=== PATIENT | female | born 1975 | race Caucasian/White ===

== ENCOUNTER 2017-01-12 17:09 | Observation (INO) | payer MEDICARE ==
[2017-01-12] MEDS ORDERED: Nitrostat 0.4 MG (ED) SL ONE ×2 (17:56→18:06)
[2017-01-12] MEDS ORDERED: ANTIVERT 25 MG PO ONE (17:58)
[2017-01-12] MEDS ORDERED: Sodium Chloride 0.9% 1000 ML 1,000 ML IV SCH (18:00)
--- NOTE | 2017-01-12 18:01 | ERPHSYRPT ---
- History of Present Illness Time Seen by Provider: 01/12/17 17:50 Historian: patient Exam Limitations: clinical condition Patient Subjective Stated Complaint: PT C/O CHEST PAIN THATS GOING SINCE TUESDAY. CHEST DISCOMFORT THAT RADIATES TO THE LEFT ARM, FINGERS FEEL NUMB AND TINGLING. PT C/O DIZZINESS AND LIGHTHEADEDNESS WHICH CAUSES HER LIPS TO BE NUMB AND TINGLING. TONGUE WENT NUMB ONCE. PT C/O SOB. Triage Nursing Assessment: PT IS ALERT X 3. RESPIRATIONS EVEN AND UNLABORED. SKIN IS PINK WARM AND MOIST. Physician History: PATIENT COMPLAINS OF LEFT SUBSTERNAL CHESTS PAIN FOR 4 DAYS RADIATING INTO LEFT SHOULDER AND ARM. HAS OCCASIONAL DYSPNEA UPON EXERTION. HAS MARKED DIZZINESS UPON MOTION OF HEAD. TOOK IMITREX FOR HEADACHE EARLIER. Timing/Duration: day(s) Activities at Onset: none Quality: sharpness Location: substernal Chest Pain Radiation: arm Severity of Pain-Max: moderate Severity of Pain-Current: moderate Modifying Factors: Improves With: movement Associated Symptoms: dizziness Nitro Today/Relief: no nitro taken today (PATIENT REFUSED NITROGLYCERIN) Aspirin Treatment Today: 81 mg x 4, provided by ED Allergies/Adverse Reactions: levofloxacin [From Levaquin] Allergy (Mild, Verified 06/06/13 10:40) Quinazolinones Allergy (Mild, Verified 06/06/13 10:40) Sulfa (Sulfonamide Antibiotics) [Sulfa(Sulfonamide Antibiotics)] Allergy (Mild, Verified 06/06/13 10:40) Home Medications: Albuterol/Ipratropium Mdi [Combivent Inhaler] 14.7 gm IH BID 08/02/12 [ History] Klonopin 1 mg PO BID 08/02/12 [History] Lisinopril/ Hctz 20/12.5 1 tab PO DAILY 08/02/12 [History] Prilosec 20 mg 20 mg PO BID 08/02/12 [History] Prozac 40 mg PO DAILY 08/02/12 [History] Toprol-Xl 25MG Tablets 25 mg PO BID 08/02/12 [History] lamICTAL 100MG TABLET 200 mg PO DAILY 08/02/12 [History] zanTAC 150 MG TABLET 150 mg PO BID 08/02/12 [History] Albuterol Sulfate Mdi [Proair Hfa MDI] 8.5 gm IH Q4-6HPRN PRN 06/06/13 [ History] Divalproex Sodium 250 mg [Depakote 250 MG] 500 mg PO BID 06/06/13 [History ] Hydrocodone Bit/Acetaminophen [Vicodin 5-500 Tablet] 1 each PO Q4-6HPRN PRN 01/11 [History] Sumatriptan Succinate [Imitrex] 100 mg PO UD PRN 06/06/13 [History] Hx Tetanus, Diphtheria Vaccination/Date Given: No Hx Influenza Vaccination/Date Given: No Hx Pneumococcal Vaccination/Date Given: No Immunizations Up to Date: Yes - Review of Systems Constitutional: No Fever, No Chills Eyes: No Symptoms Ears, Nose, & Throat: No Symptoms Respiratory: No Symptoms, No Cough, No Dyspnea Cardiac: Chest Pain, No Edema, No Syncope Abdominal/Gastrointestinal: No Symptoms, No Abdominal Pain, No Nausea, No Vomiting, No Diarrhea Genitourinary Symptoms: No Symptoms, No Dysuria Musculoskeletal: No Symptoms, No Back Pain, No Neck Pain Skin: No Rash Neurological: Dizziness, No Focal Weakness, No Sensory Changes Psychological: No Symptoms Endocrine: No Symptoms All Other Systems: Reviewed and Negative - Past Medical History Pertinent Past Medical History: Yes Neurological History: Migraines ENT History: No Pertinent History Cardiac History: Hypertension, Other Respiratory History: Bronchitis Endocrine Medical History: No Pertinent History Musculoskeletal History: Degenerative Disk Disease, Other GI Medical History: GERD History: No Pertinent History Psycho-Social History: Bipolar, Depression Female Reproductive Disorders: Endometriosis Other Medical History: PVC's - Past Surgical History Past Surgical History: Yes Neuro Surgical History: No Pertinent History Cardiac: No Pertinent History Respiratory: No Pertinent History Gastrointestinal: Cholecystectomy Genitourinary: No Pertinent History Female Surgical History: Section, Tubal Ligation, Other Other Surgical History: 3 endometrial ablasions, EGD, D&C - Social History Smoking Status: Current every day smoker How long have you smoked: 28 Exposure to second hand smoke: Yes Drug Use: none Patient Lives Alone: No Significant Family History: in age 40's - Female History Hx Now: No - Nursing Vital Signs Nursing Vital Signs: Initial Vital Signs Temperature 98.4 F Temperature Source Oral Pulse Rate [] 95 Pulse Rate 78 Respiratory Rate 16 Blood Pressure [] 129/87 Pain Intensity 0 - Physical Exam General Appearance: no apparent distress, alert Eye Exam: PERRL/EOMI, eyes nml inspection Ears, Nose, Throat Exam: normal ENT inspection, moist mucous membranes Neck Exam: normal inspection, non-tender, supple, full range of motion Respiratory Exam: normal breath sounds, chest tenderness (LEFT ANTERIOR CHEST WALL 2ND TO 4TH RIBS ), lungs clear, No respiratory distress Cardiovascular Exam: regular rate/rhythm, normal heart sounds Gastrointestinal/Abdomen Exam: soft, normal bowel sounds, No tenderness, No mass Back Exam: normal inspection, No CVA tenderness, No vertebral tenderness Extremity Exam: normal inspection, normal range of motion Neurologic Exam: alert, oriented x 3, cooperative, normal mood/affect, sensation nml, No motor deficits Skin Exam: normal color, warm, dry SpO2 Interpretation: normal SpO2: 97 Oxygen Delivery: Room Air - Course EKG Interpreted by Me: RATE, Sinus Rhythm, NORMAL AXIS - Radiology Exams Chest X-ray Interpretation: Interpreted by me, Negative, No Infiltrates Ordered Tests: Active Orders 24 hr Category Date Time Status Up With Assistance ROUTINE Activity 01/12/17 19:06 Ordered Admission/Status Order ROUTINE Care 01/12/17 19:05 Ordered Call Admit Doctor for Orders ROUTINE Care 01/12/17 19:05 Ordered Machine Heel Seat Fitter STAT Care 01/12/17 17:56 Active Code Status Order ROUTINE Care 01/12/17 19:05 Ordered EKG-ER Only STAT Care 01/12/17 17:56 Active IV Care Q6H Care 01/12/17 19:05 Ordered IV Insertion STAT Care 01/12/17 17:56 Active Implement Chest Pain Pathway ROUTINE Care 01/12/17 19:05 Ordered Oxygen-ED Only NASAL CANNULA 2 lpm Care 01/12/17 17:56 Active Pulse Oximetry (ED) STAT Care 01/12/17 17:56 Active Artis Pacheco, Apply ROUTINE Care 01/12/17 19:05 Ordered Telemetry ROUTINE Care 01/12/17 19:05 Ordered Vital Signs Q4H Care 01/12/17 19:05 Ordered Weight,Daily 0600 Care 01/12/17 19:05 Ordered Regular Diet Diet 01/12/17 Breakfast Ordered CHEST 1 VIEW (PORTABLE) Stat Exams 01/12/17 18:12 Taken CBC W DIFF Stat Lab 01/12/17 17:18 Completed CMP Stat Lab 01/12/17 17:18 Completed D-DIMER QUANTITATION Stat Lab 01/12/17 17:18 Completed LIPID PROFILE AM.LAB Lab 01/13/17 04:00 Ordered PROTIME WITH INR Stat Lab 01/12/17 17:18 Completed TROPONIN Q3H Lab 01/12/17 17:18 Completed TROPONIN Q3H Lab 01/12/17 21:00 Ordered TROPONIN Q3H Lab 01/13/17 00:00 Ordered TROPONIN Q3H Lab 01/13/17 03:00 Ordered TROPONIN Q3H Lab 01/13/17 06:00 Ordered EKG Q8HX2,QAMX3,PRN RT 01/12/17 19:05 Ordered Pulse Oximetry Q4H RT 01/12/17 19:05 Ordered Transfer Order Routine Transfer 01/12/17 19:02 Ordered Medication Summary Generic Name Dose Route Start Last Admin Trade Name Freq PRN Reason Stop Dose Admin Sodium Chloride 1,000 mls @ 100 mls/hr 01/12/17 18:00 01/12/17 18:11 Sodium Chloride 0.9% 1000 Ml IV 02/11/17 17:59 100 mls/hr .Q10H CHAVA Administration Discontinued Medications Generic Name Dose Route Start Last Admin Trade Name Freq PRN Reason Stop Dose Admin Meclizine HCl 25 mg 01/12/17 17:58 01/12/17 18:09 Antivert 25 Mg PO 01/12/17 17:59 25 mg STAT ONE Administration Meclizine HCl Confirm 01/12/17 18:07 Antivert 25 Mg Administered 01/12/17 18:08 Dose 25 mg .ROUTE .STK-MED ONE Nitroglycerin 0.4 mg 01/12/17 17:56 01/12/17 18:15 Nitrostat 0.4 Mg (Ed) SL 01/12/17 17:57 Not Given STAT ONE Nitroglycerin Confirm 01/12/17 18:06 Nitrostat 0.4 Mg (Ed) Administered 01/12/17 18:07 Dose 0.4 mg SL .STK-MED ONE Nitroglycerin 1 gm 01/12/17 18:49 01/12/17 18:53 Nitro-Bid 2% Ud Packets TOP 01/12/17 18:50 1 gm STAT ONE Administration Nitroglycerin Confirm 01/12/17 18:51 Nitro-Bid 2% Ud Packets Administered 01/12/17 18:52 Dose 1 gm .ROUTE .STK-MED ONE Lab/Rad Data: Laboratory Result Diagrams 01/12/17 17:18 01/12/17 17:18 Laboratory Results 01/12/17 01/12/17 01/12/17 Range/Units 17:18 17:18 17:18 WBC (4.0-10.5) K/mm3 RBC (4.1-5.4) M/mm3 Hgb (12.0-16.0) gm/dl Hct (35-47) % MCV (78-100) fl MCH (26-32) pg MCHC (32-36) g/dl RDW (11.5-14.0) % Plt Count (150-450) K/mm3 MPV (6-9.5) fl Gran % (36.0-66.0) % Lymphocytes % (24.0-44.0) % Monocytes % (0.0-12.0) % Eosinophils % (0.00-5.0) % Basophils % (0.0-0.4) % Basophils # (0-0.4) INR 1.11 (0.8-3.0) D-Dimer 337.18 (0.00-500.00) ng/mL Sodium 141 (136-145) mEq/L Potassium 3.7 (3.5-5.1) mEq/L Chloride 103 (98-107) mEq/L Carbon Dioxide 30.2 (21-32) mEq/L Anion Gap 11.1 (5-15) MEQ/L BUN 15 (9-20) mg/dL Creatinine 0.93 (0.55-1.30) mg/dl Estimated GFR > 60 ML/MIN Glucose 107 (70-110) MG/DL Calcium 9.6 (8.5-10.1) mg/dL Total Bilirubin 0.40 (0.2-1.0) mg/dL AST 24 (15-37) U/L ALT 99 H (12-78) U/L Alkaline Phosphatase 82 (46-116) U/L Troponin I < 0.017 (0.000-0.056) ng/ml Serum Total Protein 8.3 H (6.4-8.2) gm/dL Albumin 4.1 (3.4-5.0) g/dL 01/12/17 Range/Units 17:18 WBC 10.9 H (4.0-10.5) K/mm3 RBC 5.18 (4.1-5.4) M/mm3 Hgb 16.5 H (12.0-16.0) gm/dl Hct 49.3 H (35-47) % MCV 95.2 (78-100) fl MCH 31.8 (26-32) pg MCHC 33.5 (32-36) g/dl RDW 14.1 H (11.5-14.0) % Plt Count 259 (150-450) K/mm3 MPV 11.4 H (6-9.5) fl Gran % 64.2 (36.0-66.0) % Lymphocytes % 26.9 (24.0-44.0) % Monocytes % 7.0 (0.0-12.0) % Eosinophils % 1.4 (0.00-5.0) % Basophils % 0.5 (0.0-0.4) % Basophils # 0.05 (0-0.4) INR (0.8-3.0) D-Dimer (0.00-500.00) ng/mL Sodium (136-145) mEq/L Potassium (3.5-5.1) mEq/L Chloride (98-107) mEq/L Carbon Dioxide (21-32) mEq/L Anion Gap (5-15) MEQ/L BUN (9-20) mg/dL Creatinine (0.55-1.30) mg/dl Estimated GFR ML/MIN Glucose (70-110) MG/DL Calcium (8.5-10.1) mg/dL Total Bilirubin (0.2-1.0) mg/dL AST (15-37) U/L ALT (12-78) U/L Alkaline Phosphatase (46-116) U/L Troponin I (0.000-0.056) ng/ml Serum Total Protein (6.4-8.2) gm/dL Albumin (3.4-5.0) g/dL - Progress Progress: improved Progress Note: 01/12/17 18:58 PATIENT GIVEN BABY ASA X 4, ANTIVERT 25MG ORALLY, REFUSED NITROGLYCERIN SL, NITROPASTE 1 " APPLIED TO CHEST PAIN Discussed with DrLatisha: Kiah (DISCUSSED WITH DR KITA ADKINS AT 1830 FOR EVALUATION ) Will see patient in: hospital (observation) - Departure Time of Disposition: 19:05 Departure Disposition: Observation Clinical Impression: ACUTE CHEST PAIN, ACUTE LABYRINTHITIS Condition: Stable Critical Care Time: No Referrals: ROBERT ADKINS [Primary Care Provider] -
[2017-01-12 18:04] LABS: BASOPHIL % 0.5 % (0.0-0.4); Eosinophil % 1.4 % (0.00-5.0); Granulocytes % 64.2 % (36.0-66.0); Lymphocytes % 26.9 % (24.0-44.0); Mean Cell Volume 95.2 fl (78-100); Mean Platelet Volume 11.4 fl (6-9.5); Platelet Count 259 K/mm3 (150-450); Red Blood Count 5.18 M/mm3 (4.1-5.4); Red Cell Distribution Width 14.1 % (11.5-14.0); White Blood Count 10.9 K/mm3 (4.0-10.5)
[2017-01-12 18:05] LABS: Mean Corpuscular Hemoglobin 31.8 pg (26-32)
[2017-01-12 18:06] LABS: INR 1.11 (0.8-3.0); PROTIME 12.6 SECONDS (9.95-12.35)
[2017-01-12] MEDS ORDERED: Sodium Chloride 0.9% 1000 ML 1,000 ML ONE (18:07)
[2017-01-12] MEDS ORDERED: ANTIVERT 25 MG ONE (18:07)
[2017-01-12 18:14] LABS: ALBUMIN 4.1 g/dL (3.4-5.0); ALKALINE PHOSPHATASE 82 U/L (46-116); ANION GAP 11.1 MEQ/L (5-15); BLOOD UREA NITROGEN 15 mg/dL (9-20); CHLORIDE 103 mEq/L (98-107); Carbon Dioxide 30.2 mEq/L (21-32); Glucose 107 MG/DL (70-110); Potassium 3.7 mEq/L (3.5-5.1); SGOT/AST 24 U/L (15-37); SGPT/ALT 99 U/L (12-78); SODIUM 141 mEq/L (136-145); Total Protein 8.3 gm/dL (6.4-8.2)
[2017-01-12] MEDS ORDERED: NITRO-BID 2% UD PACKETS TOP ONE (18:49)
[2017-01-12] MEDS ORDERED: NITRO-BID 2% UD PACKETS ONE (18:51)
[2017-01-12] MEDS ORDERED: Zofran 4 MG/2 ML VIAL IV PRN (19:05)
[2017-01-12] MEDS ORDERED: TYLENOL 325 MG PO PRN (19:05)
[2017-01-12] MEDS ORDERED: Senokot-S Tablet PO PRN (19:05)
[2017-01-12] MEDS ORDERED: MILK OF MAGNESIA 30 ML PO PRN (19:05)
[2017-01-12] MEDS ORDERED: MAALOX ES 30 ML UNIT DOSE PO PRN (19:05)
[2017-01-12] MEDS ORDERED: ANTIVERT 25 MG PO PRN (19:08)
[2017-01-12] MEDS ORDERED: Nitrostat 0.4 MG Tablet SL PRN (19:09)
[2017-01-12] MEDS ORDERED: Sodium Chloride 0.9% 500 ML 500 ML IV SCH (19:15)
[2017-01-12] MEDS ORDERED: PHENERGAN 25 MG PO PRN (22:04)
[2017-01-12] MEDS ORDERED: PROVENTIL COMMON CANISTER IH PRN (22:12)
[2017-01-12] MEDS: Advair Hfa 115/21 Common canister IH SCH (22:15)
[2017-01-12] MEDS: Toprol-Xl 25MG Tablets PO SCH (22:26)
[2017-01-12] MEDS: Pepcid 20 MG PO SCH (22:26)
[2017-01-12] MEDS: Klonopin 0.5 MG PO SCH (22:26)
[2017-01-12] MEDS: Protonix 40MG Tablet PO SCH (22:26)
[2017-01-12] MEDS: NITRO-BID 2% UD PACKETS TOP SCH (22:27)
[2017-01-13] MEDS: NITRO-BID 2% UD PACKETS TOP SCH (06:02)
[2017-01-13] MEDS: Advair Hfa 115/21 Common canister IH SCH (06:47)
[2017-01-13 06:57] VITALS: O2SAT 94
[2017-01-13 07:31] VITALS: BP 103/55; PULSE 80
--- NOTE | 2017-01-13 08:32 | XRAY ---
Indication: Chest pain, short of breath, and dizziness. Comparison: June 28, 2016. Single AP chest again demonstrates normal heart, lungs, and bony thorax.
--- NOTE | 2017-01-13 08:32 | PCM.HP ---
History of Present Illness - Chief Complaint Chief Complaint: Shortness of Breath Date: 01/17/17 History of Present Illness: is a 41 year old female. who has history of symptomatic PVC but was feeling different yesterday with some sharp pains and tightness in the chest and radiation to the left arm. she had no nausea, vomiting or diaphoresis and no shortness of breath. Nitro may have helped some but gave her a headache. She states the pains are better this am. She feels more frequent palpitations now for the last several days. - Review of Systems Constitutional: No Fever, No Chills Eyes: No Symptoms Ears, Nose, & Throat: No Symptoms Respiratory: No Cough, No Short Of Breath Cardiac: Chest Pain, Palpitations, No Edema, No Syncope Abdominal/Gastrointestinal: No Abdominal Pain, No Nausea, No Vomiting, No Diarrhea Genitourinary Symptoms: No Dysuria Musculoskeletal: No Back Pain, No Neck Pain Skin: No Rash Neurological: No Dizziness, No Focal Weakness, No Sensory Changes Psychological: No Symptoms Endocrine: No Symptoms Hematologic/Lymphatic: No Symptoms Immunological/Allergic: No Symptoms Medications & Allergies Home Medications: Home Medication List Albuterol Sulfate Mdi [Proair Hfa MDI] 8.5 gm IH Q4-6HPRN PRN 06/06/13 [ History Confirmed 01/12/17] Clonazepam [Klonopin] 1 mg PO TID 01/12/17 [History Confirmed 01/12/17] Fluticasone/Salmeterol [Advair 250-50 Diskus] 1 each IH BID 01/12/17 [History Confirmed 01/12/17] Hydrochlorothiazide 12.5 mg PO DAILY 01/12/17 [History Confirmed 01/12/17] Lamotrigine 100 mg [lamICTAL 100MG TABLET] 200 mg PO DAILY 01/12/17 [ History Confirmed 01/12/17] Metoprolol Succinate [Toprol Xl] 25 mg PO BID 01/12/17 [History Confirmed ] Montelukast Sodium [Singulair] 10 mg PO DAILY 01/12/17 [History Confirmed ] Omeprazole 20 MG [Prilosec 20 mg] 20 mg PO BID 01/12/17 [History Confirmed 01/12] Potassium Chloride 10 Meq Tab* [Klor Con 10 MEQ] 20 meq PO DAILY 01/12/17 [ History Confirmed 01/12/17] Promethazine HCl 25 mg [Phenergan 25 mg] 25 mg PO Q6HPRN PRN 01/12/17 [ History Confirmed 01/12/17] Ranitidine HCl [Zantac] 150 mg PO BID 01/12/17 [History Confirmed 01/12/17] Sumatriptan Succinate [Imitrex] 100 mg PO DAILY PRN PRN 01/12/17 [History Confirmed 01/12/17] Venlafaxine HCl ER 75 mg [Effexor XR 75 MG] 75 mg PO DAILY 01/12/17 [ History Confirmed 01/12/17] Meclizine HCl 25 mg [Antivert 25 mg] 25 mg PO Q8H PRN PRN #40 tablet 01/13 [Rx] Allergies/Adverse Reactions: Allergies Allergy/AdvReac Type Severity Reaction Status Date / Time levofloxacin [From Levaquin] Allergy Mild Verified 06/06/13 10:40 Quinazolinones Allergy Mild Verified 06/06/13 10:40 Sulfa (Sulfonamide Allergy Mild Verified 06/06/13 10:40 Antibiotics) [Sulfa(Sulfonamide Antibiotics)] - Past Medical History Past Medical History: Yes Neurological History: Migraines ENT History: No Pertinent History Cardiac History: Arrhythmia, Hypertension, Other Respiratory History: Bronchitis, Pneumonia Endocrine Medical History: No Pertinent History Musculoskelatal History: Degenerative Disk Disease, Other GI Medical History: GERD History: No Pertinent History Pyscho-Social History: Bipolar, Depression Reproductive Disorders: Endometriosis Comment: PVC's - Female History Are you now?: No - Past Surgical History Past Surgical History: Yes Neuro Surgical History: No Pertinent History Cardiac History: No Pertinent History Respiratory Surgery: No Pertinent History GI Surgical History: Cholecystectomy Genitourinary Surgical Hx: No Pertinent History Female Surgical History: Section, Tubal Ligation, Other Other Surgical History: 1 endometrial ablasions, EGD, D&C - Social History Smoking Status: Current every day smoker How long have you smoked: 28 Exposure to second hand smoke: Yes Alcohol: None Drug Use: none Significant Family History: in age 40's - Physical Exam Vital Signs: Vital Signs - 24 hr Temp Pulse Pulse Resp BP Pulse Ox 01/13/17 07:30 98.3 F 80 13 103/55 94 L 01/13/17 06:52 67 14 94 L 01/13/17 06:00 96 01/13/17 04:00 98.3 F 81 16 113/59 95 01/13/17 02:31 93 L 01/12/17 23:57 98.4 F 98 H 16 117/56 93 L 01/12/17 22:17 81 16 96 01/12/17 20:18 98.3 F 78 16 116/66 2 L 01/12/17 19:20 74 14 119/80 99 01/12/17 19:11 97 01/12/17 18:49 78 16 129/87 100 01/12/17 18:16 84 16 124/74 97 01/12/17 17:56 97 01/12/17 17:16 95 H 01/12/17 17:10 98.4 F 98 H 22 139/90 97 Oxygen-Last 24 hours O2 Percentage 2 Liters = 28% O2 Percentage 2 Liters = 28% O2 Percentage 2 Liters = 28% General Appearance: no apparent distress, alert Neurologic Exam: alert, oriented x 3, cooperative, normal mood/affect, nml cerebellar function, nml station & gait, sensation nml, No motor deficits Eye Exam: PERRL/EOMI, eyes nml inspection Ears, Nose, Throat Exam: normal ENT inspection, TMs normal, pharynx normal, moist mucous membranes Neck Exam: normal inspection, non-tender, supple, full range of motion Respiratory Exam: normal breath sounds, lungs clear, No respiratory distress Cardiovascular Exam: regular rate/rhythm, normal heart sounds, normal peripheral pulses Gastrointestinal/Abdomen Exam: soft, normal bowel sounds, No tenderness, No mass Back Exam: normal inspection, normal range of motion, No CVA tenderness, No vertebral tenderness Extremity Exam: normal inspection, normal range of motion, pelvis stable Skin Exam: normal color, warm, dry, No rash Lymphatic Exam: No adenopathy Results - Labs Lab/Micro Results: Lab Results-Last 24 Hours 01/12/17 01/12/17 01/13/17 Range/Units 21:00 21:15 00:15 Troponin I < 0.017 < 0.017 (0.000-0.056) ng/ml Triglycerides 147 (30-200) mg/dL Cholesterol 241 H (100-200) mg/dL LDL Cholesterol 181 H (5-99) mg/dL HDL Cholesterol 37 (35-60) mg/dL Heart Disease Risk Ratio 6.5 01/13/17 01/13/17 Range/Units 03:15 06:00 Troponin I < 0.017 < 0.017 (0.000-0.056) ng/ml Triglycerides (30-200) mg/dL Cholesterol (100-200) mg/dL LDL Cholesterol (5-99) mg/dL HDL Cholesterol (35-60) mg/dL Heart Disease Risk Ratio - Other Procedures and Tests Respiratory Therapy 01/12/17 22:11 Respiratory MDI BID 01/12/17 22:12 Respiratory MDI PRN 01/14/17 05:00 EKG DAILY 01/15/17 05:00 EKG DAILY 01/16/17 05:00 EKG DAILY Assessment/Plan (1) Chest pain Status: Acute Assessment & Plan: serial troponins negative chest pain improved and no significant arrhythmias on telemetry will get Holter monitor and have follow up with her cvor nurse Dr. Morales Code(s): R07.9 - CHEST PAIN, UNSPECIFIED (2) Palpitations Status: Acute Code(s): R00.2 - PALPITATIONS (3) Hypertension Status: Acute Code(s): I10 - ESSENTIAL (PRIMARY) HYPERTENSION (4) Anxiety Status: Acute Code(s): F41.9 - ANXIETY DISORDER, UNSPECIFIED
--- NOTE | 2017-01-13 08:34 | PCM.DCORD ---
- Discharge Discharge Date: 01/13/17 Disposition: Home, Self-Care Condition: Stable Prescriptions: New Meclizine HCl 25 mg [Antivert 25 mg] 25 mg PO Q8H PRN PRN #40 tablet PRN Reason: Dizziness Continue Albuterol Sulfate Mdi [Proair Hfa MDI] 8.5 gm IH Q4-6HPRN PRN PRN Reason: Shortness Of Breath/Wheezing Clonazepam [Klonopin] 1 mg PO TID Venlafaxine HCl ER 75 mg [Effexor XR 75 MG] 75 mg PO DAILY Hydrochlorothiazide 12.5 mg PO DAILY Promethazine HCl 25 mg [Phenergan 25 mg] 25 mg PO Q6HPRN PRN PRN Reason: Nausea Montelukast Sodium [Singulair] 10 mg PO DAILY Potassium Chloride 10 Meq Tab* [Klor Con 10 MEQ] 20 meq PO DAILY Ranitidine HCl [Zantac] 150 mg PO BID Metoprolol Succinate [Toprol Xl] 25 mg PO BID Sumatriptan Succinate [Imitrex] 100 mg PO DAILY PRN PRN PRN Reason: Headache Omeprazole 20 MG [Prilosec 20 mg] 20 mg PO BID Lamotrigine 100 mg [lamICTAL 100MG TABLET] 200 mg PO DAILY Fluticasone/Salmeterol [Advair 250-50 Diskus] 1 each IH BID Additional Instructions: please set up with home 24 hour Holter monitor for palpitations and presyncope Follow up with: ROBERT ADKINS [Primary Care Provider] - KALPANA ALLEN [ACTIVE STAFF] - 1 Week
[2017-01-13] MEDS ORDERED: Klor Con 10 MEQ PO SCH (10:00)
[2017-01-13] MEDS ORDERED: hydroDIURIL 25 MG PO SCH (10:00)
[2017-01-13] MEDS ORDERED: Effexor XR 75 MG PO SCH (10:00)
[2017-01-13] MEDS ORDERED: NON-FORMULARY ITEM (Hydrochlorothiazide [Hydrochlorothiazide] 12.5 MG) PO SCH (10:00)
[2017-01-13] MEDS ORDERED: Singulair 10 MG PO SCH (10:00)
[2017-01-13] MEDS ORDERED: Ecotrin 325 MG PO SCH (10:00)
[2017-01-13] MEDS ORDERED: Toprol-Xl 25MG Tablets PO SCH (10:00)
[2017-01-13] MEDS ORDERED: lamICTAL 100MG TABLET PO SCH (10:00)
[2017-01-13] MEDS ORDERED: PNEUMOVAX 23 IM ONE (10:00)
[2017-01-13] MEDS: Protonix 40MG Tablet PO SCH (10:06)
[2017-01-13] MEDS: Klonopin 0.5 MG PO SCH (10:06)
[2017-01-13] MEDS: Pepcid 20 MG PO SCH (10:06)
[2017-01-13] MEDS: Toprol-Xl 25MG Tablets PO SCH (10:06)
== END 2017-01-13 10:25 | disposition home or self-care (01) ==
LOC: ED 17:09 → MED SURG 19:40
PROVIDERS: ADMIT Family Medicine; ATTEND Family Medicine
DX: R07.9 Chest pain, unspecified (principal); R00.2 Palpitations; I10 Essential (primary) hypertension; F41.9 Anxiety disorder, unspecified; K21.9 Gastro-esophageal reflux disease without esophagitis; F31.9 Bipolar disorder, unspecified; N80.9 Endometriosis, unspecified; I49.3 Ventricular premature depolarization; Z72.0 Tobacco use; Z79.899 Other long term (current) drug therapy; Z23 Encounter for immunization
CPT/HCPCS: 36000; 36415; 71010; 80053; 80061; 83721; 84484; 85025; 85379; 85610; 90732; 93005; 93041; 93268; 94640; 94760; 96360; 99285; G0378; A9270-GY

== ENCOUNTER 2018-07-19 13:43 | Observation (INO) | payer MEDICARE ==
[2018-07-19] MEDS ORDERED: BABY ASPIRIN 81 MG CHEW PO ONE (14:01)
[2018-07-19] MEDS ORDERED: PROVENTIL 2.5 MG/3 ML NEB IH ONE ×2 (14:03→14:14)
[2018-07-19] MEDS ORDERED: solu-MEDROL 125 MG IV ONE (14:03)
--- NOTE | 2018-07-19 14:09 | ERPHSYRPT ---
- History of Present Illness Time Seen by Provider: 07/19/18 14:04 Historian: patient Exam Limitations: no limitations Patient Subjective Stated Complaint: seen at [facility] on tuesday for sinus and ear infection. started with CP x 2 days and PVCs which she has had in the past.. non productive cough.. no fever Triage Nursing Assessment: alert and in no distress. states pain in chest x 2 days. sen at [facility] on tuesday for sinus infection and ear infection. pain to her chest increases when laying down states can feel the PVCs. non prodictive cough Physician History: 42-year-old white female with history of migraines, high blood pressure, bronchitis, degenerative disc disease, GERD, bipolar depression, PVCs Patient states that she's had a cough, sinus infection ear infection for 2 days she states she was seen at [facility] placed on antibiotic she states that. She has been having PVCs for 2 days she states initially told the nurse she had chest pain for the last couple days she tells me that she had chest pain and radiating around her left chest to her back since 10 minutes prior to arrival. She denies shortness of breath she has no nausea no vomiting. Past medical history includes migraines, high blood pressure, bronchitis, degenerative disc disease, GERD, bipolar depression, endometriosis, PVCs she tolerated. Past surgical history includes cholecystectomy, , tubal ligation, endometrial ablation Social history positive for tobacco positive for marijuana use 2 days ago Timing/Duration: other (PVCs for 2 days, tells the nurse chest pain for 2 days, tells me chest pain 10 minutes prior to arrival) Activities at Onset: none Quality: pressure, sharpness Location: other (anterior chest radiating aroundleft side) Severity of Pain-Max: moderate Severity of Pain-Current: mild Modifying Factors: Improves With: nothing Associated Symptoms: palpitations, cough, No nausea, No vomiting, No heartburn, No abdominal pain (Controlling nausea or a), No shortness of breath, No hurts to breathe, No diaphoresis, No chills, No fever, No fatigue, No weakness, No swelling/lump in chest, No syncope, No rash, No headache, No dizziness, No edema , No back pain Prior Chest Pain/Cardiac Workup: non-cardiac Nitro Today/Relief: no nitro taken today Aspirin Treatment Today: 81 mg x 4, provided by ED Allergies/Adverse Reactions: levofloxacin [From Levaquin] Allergy (Mild, Verified 07/19/18 14:03) Quinazolinones Allergy (Mild, Verified 07/19/18 14:03) Sulfa (Sulfonamide Antibiotics) [Sulfa(Sulfonamide Antibiotics)] Allergy (Mild, Verified 07/19/18 14:03) Home Medications: Albuterol Sulfate Mdi [Proair Hfa MDI] 8.5 gm IH Q4-6HPRN PRN 06/06/13 [ History] Fluticasone/Salmeterol [Advair 250-50 Diskus] 1 each IH BID 01/12/17 [History] Lamotrigine 100 mg [lamICTAL 100MG TABLET] 200 mg PO DAILY 01/12/17 [ History] Metoprolol Succinate [Toprol Xl] 25 mg PO BID 01/12/17 [History] Montelukast Sodium [Singulair] 10 mg PO DAILY 01/12/17 [History] Omeprazole 20 MG [Prilosec 20 mg] 20 mg PO BID 01/12/17 [History] Potassium Chloride 10 Meq Tab* [Klor Con 10 MEQ] 20 meq PO DAILY 01/12/17 [ History] Promethazine HCl 25 mg [Phenergan 25 mg] 25 mg PO Q6HPRN PRN 01/12/17 [ History] Ranitidine HCl [Zantac] 150 mg PO BID 01/12/17 [History] Sumatriptan Succinate [Imitrex] 100 mg PO DAILY PRN PRN 01/12/17 [History] Venlafaxine HCl ER 75 mg [Effexor XR 75 MG] 75 mg PO DAILY 01/12/17 [ History] clonazePAM [Klonopin] 1 mg PO TID 01/12/17 [History] hydroCHLOROthiazide [Hydrochlorothiazide] 12.5 mg PO DAILY 01/12/17 [History] Hx Tetanus, Diphtheria Vaccination/Date Given: No Hx Influenza Vaccination/Date Given: No Hx Pneumococcal Vaccination/Date Given: No - Review of Systems Constitutional: No Fever, No Chills Eyes: No Symptoms Ears, Nose, & Throat: No Symptoms, Nose Congestion Respiratory: Cough, No Dyspnea Cardiac: Chest Pain, Palpitations, No Edema, No Syncope, No Orthopnea, No PND Abdominal/Gastrointestinal: No Abdominal Pain, No Nausea, No Vomiting, No Diarrhea Genitourinary Symptoms: No Dysuria Musculoskeletal: No Back Pain, No Neck Pain Skin: No Rash Neurological: No Dizziness, No Focal Weakness, No Sensory Changes Psychological: No Symptoms Endocrine: No Symptoms All Other Systems: Reviewed and Negative - Past Medical History Pertinent Past Medical History: Yes Neurological History: Migraines ENT History: No Pertinent History Cardiac History: Arrhythmia, Hypertension, Other Respiratory History: Bronchitis, Pneumonia Endocrine Medical History: No Pertinent History Musculoskeletal History: Degenerative Disk Disease, Other GI Medical History: GERD History: No Pertinent History Psycho-Social History: Bipolar, Depression Female Reproductive Disorders: Endometriosis Other Medical History: PVC's - Past Surgical History Past Surgical History: Yes Neuro Surgical History: No Pertinent History Cardiac: No Pertinent History Respiratory: No Pertinent History Gastrointestinal: Cholecystectomy Genitourinary: No Pertinent History Female Surgical History: Section, Tubal Ligation, Other Other Surgical History: 1 endometrial ablasions, EGD, D&C - Social History Smoking Status: Current every day smoker How long have you smoked: 28 Exposure to second hand smoke: No Drug Use: marijuana Patient Lives Alone: No Significant Family History: in age 40's - Female History Hx Now: No - Nursing Vital Signs Nursing Vital Signs: Initial Vital Signs Temperature 98 F 07/19/18 13:55 Pulse Rate 82 07/19/18 13:55 Respiratory Rate 18 07/19/18 13:55 Blood Pressure 155/108 07/19/18 13:55 O2 Sat by Pulse Oximetry 97 07/19/18 13:55 Pain Scale Pain Intensity 4 - Physical Exam General Appearance: no apparent distress, alert Eye Exam: PERRL/EOMI, eyes nml inspection Ears, Nose, Throat Exam: normal ENT inspection, moist mucous membranes Neck Exam: normal inspection, non-tender, supple, full range of motion Respiratory Exam: airway intact, wheezing, No chest tenderness, No lungs clear, No respiratory distress, No diminished breath sounds, No accessory muscle use, No prolonged expirations, No crackles/rales, No rhonchi, No pleural rub Cardiovascular Exam: regular rate/rhythm, normal heart sounds, normal peripheral pulses, capillary refill <2 sec Gastrointestinal/Abdomen Exam: soft, No tenderness, No mass Back Exam: normal inspection, No CVA tenderness, No vertebral tenderness Extremity Exam: normal inspection, normal range of motion Neurologic Exam: alert, oriented x 3, cooperative, sleeve maker II-XII nml as tested, normal mood/affect, sensation nml, No motor deficits Skin Exam: normal color, warm, dry SpO2 Interpretation: normal (97%she stated) SpO2: 97 Oxygen Delivery: Room Air - Course Nursing assessment & vital signs reviewed: Yes EKG Interpreted by Me: RATE (81 bpm), Sinus Rhythm, NORMAL AXIS, Other (EKG: Sinus rhythm, with PVC's, moderate a of artifact, normal axis, no acute ST or T wave changescompared to January 13, 2017) - Radiology Exams Chest X-ray Interpretation: Discussed w/ radiologist (cxr: normal heart, lungs and bony thorax) Ordered Tests: Active Orders 24 hr Category Date Time Status Petroleum Analyst STAT Care 07/19/18 14:02 Active EKG-ER Only STAT Care 07/19/18 14:01 Active IV Insertion STAT Care 07/19/18 14:11 Active Oxygen-ED Only NON-REBREATHER 100% Care 07/19/18 14:35 Active Pulse Oximetry (ED) STAT Care 07/19/18 14:01 Active CHEST 1 VIEW (PORTABLE) Stat Exams 07/19/18 14:02 Completed CBC W DIFF Stat Lab 07/19/18 14:01 Completed CMP Stat Lab 07/19/18 14:25 Completed D-DIMER QUANTITATION Stat Lab 07/19/18 14:25 Completed Manual Differential NC Stat Lab 07/19/18 14:01 Completed PROTIME WITH INR Stat Lab 07/19/18 14:25 Completed PTT Stat Lab 07/19/18 14:25 Completed TROPONIN Q3H Lab 07/19/18 14:25 Completed TROPONIN Q3H Lab 07/19/18 17:15 Ordered TROPONIN Q3H Lab 07/19/18 20:15 Ordered TROPONIN Q3H Lab 07/19/18 23:15 Ordered TROPONIN Q3H Lab 07/20/18 02:15 Ordered VENOUS BLOOD GAS Stat Lab 07/19/18 14:28 Completed VENOUS BLOOD GAS Stat Lab 07/19/18 16:30 Completed Peak Expiratory Flow Rate ONCE RT 07/19/18 14:24 Active Respiratory Nebulizer STAT RT 07/19/18 14:04 Completed Respiratory Therapy Assessment DAILY RT 07/19/18 14:24 Active Transfer Order Routine Transfer 07/19/18 Ordered Medication Summary Generic Name Dose Route Start Last Admin Trade Name Lita PRN Reason Stop Dose Admin Ceftriaxone Sodium/Dextrose 1 g in 50 mls @ 100 mls/hr 07/19/18 16:23 16:34 Rocephin 1 Gm-D5w 50 Ml Bag IV 07/19/18 16:52 100 ml/hr STAT STA 100 mls/hr Administration Discontinued Medications Generic Name Dose Route Start Last Admin Trade Name Lita PRN Reason Stop Dose Admin Albuterol Sulfate 2.5 mg 07/19/18 14:03 07/19/18 14:18 Proventil 2.5 Mg/3 Ml Neb IH 07/19/18 14:04 2.5 mg STAT ONE Administration Albuterol Sulfate Confirm 07/19/18 14:14 Proventil 2.5 Mg/3 Ml Neb Administered 07/19/18 14:15 Dose 2.5 mg IH .STK-MED ONE Aspirin 324 mg 07/19/18 14:01 07/19/18 14:27 Baby Aspirin 81 Mg Chew PO 07/19/18 14:02 324 mg STAT ONE Administration Aspirin Confirm 07/19/18 14:25 Baby Aspirin 81 Mg Chew Administered 07/19/18 14:26 Dose 324 mg .ROUTE .STK-MED ONE Sodium Chloride 1,000 mls @ 999 mls/hr 07/19/18 14:37 07/19/18 14:46 Sodium Chloride 0.9% 1000 Ml IV 07/19/18 15:37 999 mls/hr .Q1H1M STA Administration Sodium Chloride Confirm 07/19/18 14:45 Sodium Chloride 0.9% 1000 Ml Administered 07/19/18 14:46 Dose 1,000 mls @ ud .ROUTE .STK-MED ONE Ceftriaxone Sodium/Dextrose Confirm 07/19/18 16:31 Rocephin 1 Gm-D5w 50 Ml Bag Administered 07/19/18 16:32 Dose 1 g in 50 mls @ ud IV .STK-MED ONE Methylprednisolone Sodium Succinate 125 mg 07/19/18 14:03 07/19/18 14:27 Solu-Medrol 125 Mg IV 07/19/18 14:04 125 mg STAT ONE Administration Methylprednisolone Sodium Succinate Confirm 07/19/18 14:25 Solu-Medrol 125 Mg Administered 07/19/18 14:26 Dose 125 mg .ROUTE .STK-MED ONE Lab/Rad Data: Laboratory Result Diagrams 07/19/18 14:01 07/19/18 14:25 Laboratory Results 07/19/18 07/19/18 07/19/18 Range/Units 16:30 14:28 14:25 WBC (4.0-10.5) K/mm3 RBC (4.1-5.4) M/mm3 Hgb (12.0-16.0) gm/dl Hct (35-47) % MCV (78-100) fl MCH (26-32) pg MCHC (32-36) g/dl RDW (11.5-14.0) % Plt Count (150-450) K/mm3 MPV (6-9.5) fl Segmented Neutrophils (36.0-66.0) % Lymphocytes (Manual) (24-44) % Monocytes (Manual) (0.0-12.0) % Platelet Estimate (NORMAL) RBC Morphology Polychromasia Anisocytosis PT (9.95-12.35) SECONDS INR (0.8-3.0) APTT (25.3-37.0) SECONDS D-Dimer (215-500) ng/mL pO2/FiO2 Ratio 21.0 21.0 % VBG pH 7.40 7.41 (7.32-7.42) VBG pCO2 at Pat Temp 46 45 (42-55) mm/Hg VBG pO2 at Pat Temp 52 H 53 H (25-40) mm/Hg VBG HCO3 28.5 H 28.5 H (22-28) meq/L VBG O2 Sat (Sy) 91.9 L 95.8 (95-100) VBG Base Excess 3.0 H 3.2 H (-2.0-2.0) VBG Hemoglobin 14.0 14.5 VBG Carboxyhemoglobin 7.4 H* 15.2 H* (0.0-6.9) % T HGB POC Potassium 3.4 L 3.3 L (3.5-5.1) Sodium (137-145) mmol/L Potassium (3.5-5.1) mmol/L Chloride (98-107) mmol/L Carbon Dioxide (22-30) mmol/L Anion Gap (5-15) MEQ/L BUN (7-17) mg/dL Creatinine (0.52-1.04) mg/dL Estimated GFR ML/MIN Glucose (74-106) mg/dL Calcium (8.4-10.2) mg/dL Total Bilirubin (0.2-1.3) mg/dL AST (14-36) U/L ALT (0-35) U/L Alkaline Phosphatase (38-126) U/L Troponin I < 0.012 (0.000-0.034) ng/mL Serum Total Protein (6.3-8.2) g/dL Albumin (3.5-5.0) g/dL 07/19/18 07/19/18 07/19/18 Range/Units 14:25 14:25 14:01 WBC 16.1 H (4.0-10.5) K/mm3 RBC 4.21 (4.1-5.4) M/mm3 Hgb 14.0 (12.0-16.0) gm/dl Hct 42.0 (35-47) % MCV 99.8 (78-100) fl MCH 33.3 H (26-32) pg MCHC 33.3 (32-36) g/dl RDW 15.1 H (11.5-14.0) % Plt Count 293 (150-450) K/mm3 MPV 9.7 H (6-9.5) fl Segmented Neutrophils 70 H (36.0-66.0) % Lymphocytes (Manual) 26 (24-44) % Monocytes (Manual) 4 (0.0-12.0) % Platelet Estimate NORMAL (NORMAL) RBC Morphology ABNORMAL Polychromasia RARE Anisocytosis 1+ PT 11.6 (9.95-12.35) SECONDS INR 1.00 (0.8-3.0) APTT 24.2 L (25.3-37.0) SECONDS D-Dimer < 215 L (215-500) ng/mL pO2/FiO2 Ratio % VBG pH (7.32-7.42) VBG pCO2 at Pat Temp (42-55) mm/Hg VBG pO2 at Pat Temp (25-40) mm/Hg VBG HCO3 (22-28) meq/L VBG O2 Sat (Sy) (95-100) VBG Base Excess (-2.0-2.0) VBG Hemoglobin VBG Carboxyhemoglobin (0.0-6.9) % T HGB POC Potassium (3.5-5.1) Sodium 143 (137-145) mmol/L Potassium 3.4 L (3.5-5.1) mmol/L Chloride 103 (98-107) mmol/L Carbon Dioxide 28 (22-30) mmol/L Anion Gap 16.1 H (5-15) MEQ/L BUN 10 (7-17) mg/dL Creatinine 0.58 (0.52-1.04) mg/dL Estimated GFR > 60.0 ML/MIN Glucose 118 H (74-106) mg/dL Calcium 9.1 (8.4-10.2) mg/dL Total Bilirubin 0.40 (0.2-1.3) mg/dL AST 15 (14-36) U/L ALT 30 (0-35) U/L Alkaline Phosphatase 50 (38-126) U/L Troponin I (0.000-0.034) ng/mL Serum Total Protein 7.3 (6.3-8.2) g/dL Albumin 4.5 (3.5-5.0) g/dL - Progress Progress: improved Air Movement: fair Progress Note: 07/19/18 15:06 Patient's lung sounds are improved. Chest x-ray no acute disease process noted. Initial troponin within normal limits. Patient's carbon monoxide level was high. Patient has been given 1 L of normal saline she's been given Solu-Medrol 125 IV DuoNeb treatment. I've asked the respiratory place patient on 100% oxygen for [address] Hernandez and discussed possible placement on observation. Diagnosis 1 bronchitis with bronchospasm. 2 palpitations. 3 chest pain. 4 increased carbon monoxide level 07/19/18 16:20 Case is discussed with Dr. Hernandez. Will place on observation telemetry. Continue IV steroids began IV antibiotics. Continue duo neb treatments. I have ordered repeat venous gases after 1 hour of 100% oxygen. 07/19/18 16:41 Patient's repeat carboxyhemoglobin after 1 hour of 100% oxygen is 7.4. - Departure Time of Disposition: 16:23 Departure Disposition: Observation Clinical Impression: Palpitations, Bronchitis with bronchospasm, increased carbon monoxide level Chest pain Qualifiers: Chest pain type: unspecified Qualified Code(s): R07.9 - Chest pain, unspecified Condition: Fair Critical Care Time: No Referrals: ROBERT ADKINS [Primary Care Provider] -
[2018-07-19] MEDS ORDERED: solu-MEDROL 125 MG ONE (14:25)
[2018-07-19] MEDS ORDERED: BABY ASPIRIN 81 MG CHEW ONE (14:25)
[2018-07-19 14:33] LABS: VBG BASE EXCESS 3.2 (-2.0-2.0); VBG CARBOXYHEMOGLOBIN 15.2 % T HGB (0.0-6.9); VBG HCO3- 28.5 meq/L (22-28); VBG HEMOGLOBIN 14.5; VBG O2 SATURATION 95.8 (95-100); VBG POTASSIUM 3.3 (3.5-5.1); VBG pH 7.41 (7.32-7.42)
[2018-07-19 14:34] LABS: Mean Cell Volume 99.8 fl (78-100); Mean Corpuscular Hemoglobin 33.3 pg (26-32); Mean Corpuscular Hgb Concent. 33.3 g/dl (32-36); Mean Platelet Volume 9.7 fl (6-9.5); Platelet Count 293 K/mm3 (150-450); Red Blood Count 4.21 M/mm3 (4.1-5.4); Red Cell Distribution Width 15.1 % (11.5-14.0); White Blood Count 16.1 K/mm3 (4.0-10.5)
[2018-07-19] MEDS ORDERED: Sodium Chloride 0.9% 1000 ML 1,000 ML IV STA (14:37)
[2018-07-19 14:40] LABS: ALBUMIN 4.5 g/dL (3.5-5.0); ALKALINE PHOSPHATASE 50 U/L (38-126); ANION GAP 16.1 MEQ/L (5-15); BLOOD UREA NITROGEN 10 mg/dL (7-17); CHLORIDE 103 mmol/L (98-107); Calcium 9.1 mg/dL (8.4-10.2); Carbon Dioxide 28 mmol/L (22-30); Creatinine 1 0.58 mg/dL (0.52-1.04); Glucose 118 mg/dL (74-106); Potassium 3.4 mmol/L (3.5-5.1); SGOT/AST 15 U/L (14-36); SGPT/ALT 30 U/L (0-35); SODIUM 143 mmol/L (137-145); Total Protein 7.3 g/dL (6.3-8.2)
[2018-07-19 14:45] LABS: PTT 24.2 SECONDS (25.3-37.0)
[2018-07-19] MEDS ORDERED: Sodium Chloride 0.9% 1000 ML 1,000 ML ONE (14:45)
[2018-07-19 14:48] LABS: D-DIMER QUANTITATION < 215 ng/mL (215-500)
--- NOTE | 2018-07-19 14:52 | XRAY ---
Indication: Chest pain. Comparison: March 29, 2018. Portable chest again demonstrates normal heart, lungs, and bony thorax.
[2018-07-19 15:02] LABS: ANISOCYTOSIS 1+; Lymphocytes 26 % (24-44); Monocyte 4 % (0.0-12.0); Neutrophils 70 % (36.0-66.0); Polychromasia RARE; Total Cells Counted 100
[2018-07-19 15:03] LABS: Platelet Estimate NORMAL (NORMAL)
[2018-07-19] MEDS ORDERED: ROCEPHIN 1 Gm-D5w 50 ml Bag** 1 G/50 ML IVPB IV STA (16:23)
[2018-07-19] MEDS ORDERED: ROCEPHIN 1 Gm-D5w 50 ml Bag** 1 G/50 ML IVPB IV ONE (16:31)
[2018-07-19 16:37] LABS: VBG HCO3- 28.5 meq/L (22-28); VBG O2 SATURATION 91.9 (95-100); VBG POTASSIUM 3.4 (3.5-5.1); VBG pH 7.4 (7.32-7.42)
[2018-07-19 16:38] LABS: VBG CARBOXYHEMOGLOBIN 7.4 % T HGB (0.0-6.9)
[2018-07-19] MEDS ORDERED: DUONEB 0.5-3 MG/3 ml Neb IH PRN (17:15)
[2018-07-19] MEDS ORDERED: PROVENTIL COMMON CANISTER IH PRN (17:58)
[2018-07-19] MEDS: Sodium Chloride 0.9% 1000 ML 1,000 ML IV SCH (18:01)
[2018-07-19] MEDS: solu-MEDROL 125 MG IV SCH (19:37)
[2018-07-19] MEDS ORDERED: NON-FORMULARY ITEM PO SCH (22:00)
[2018-07-19] MEDS ORDERED: NON-FORMULARY ITEM SL SCH (22:00)
[2018-07-19] MEDS ORDERED: Pepcid 20 MG PO SCH (22:00)
[2018-07-19] MEDS ORDERED: ADVAIR 250-50 DISKUS 14 DOSE IH SCH (22:00)
[2018-07-19] MEDS ORDERED: Toprol-Xl 25MG Tablets PO SCH (22:00)
[2018-07-19] MEDS ORDERED: Klonopin 0.5 MG PO SCH (22:00)
[2018-07-19] MEDS: Advair Hfa 115/21 Common canister IH SCH (23:54)
[2018-07-20] MEDS: solu-MEDROL 125 MG IV SCH ×2 (00:26→05:05)
[2018-07-20 03:06] LABS: ALBUMIN 3.8 g/dL (3.5-5.0); ALKALINE PHOSPHATASE 55 U/L (38-126); BLOOD UREA NITROGEN 14 mg/dL (7-17); CHLORIDE 109 mmol/L (98-107); Calcium 8.8 mg/dL (8.4-10.2); Carbon Dioxide 25 mmol/L (22-30); Creatinine 1 0.51 mg/dL (0.52-1.04); Glucose 140 mg/dL (74-106); Potassium 4.2 mmol/L (3.5-5.1); SGOT/AST 12 U/L (14-36); SGPT/ALT 28 U/L (0-35); SODIUM 143 mmol/L (137-145); Total Protein 6.2 g/dL (6.3-8.2)
[2018-07-20] MEDS: Sodium Chloride 0.9% 1000 ML 1,000 ML IV SCH (04:23)
[2018-07-20 04:38] LABS: Granulocyte Absolute (ANC) 12.81 (1.4-6.9); Hematocrit 41.3 % (35-47); Hemoglobin 13.4 gm/dl (12.0-16.0); Mean Cell Volume 101.5 fl (78-100); Mean Corpuscular Hemoglobin 32.9 pg (26-32); Mean Corpuscular Hgb Concent. 32.4 g/dl (32-36); Mean Platelet Volume 10.1 fl (6-9.5); Platelet Count 264 K/mm3 (150-450); Red Blood Count 4.07 M/mm3 (4.1-5.4); Red Cell Distribution Width 15.4 % (11.5-14.0); White Blood Count 14.7 K/mm3 (4.0-10.5)
[2018-07-20 05:21] LABS: BAND 2 % (0.0-2.0); Lymphocytes 14 % (24-44); Neutrophils 84 % (36.0-66.0); Platelet Estimate NORMAL (NORMAL); Total Cells Counted 100
[2018-07-20] MEDS ORDERED: Spiriva 18 Mcg/Cap Inhaler IH SCH (07:00)
[2018-07-20 07:26] VITALS: BP 114/67
[2018-07-20] MEDS: Advair Hfa 115/21 Common canister IH SCH (08:01)
--- NOTE | 2018-07-20 08:32 | PCM.HP ---
History of Present Illness - Chief Complaint Chief Complaint: bronchitis, chest pain, otitis media Date: 07/20/18 History of Present Illness: is a 42 year old female. who has history of smoking and copd with asthma and developed worsening coughing and shortness of breath for the last 10 days. She was seen and treated at [facility] with steroid and cefdinir. She continues to smoke. She is using her inhalers she states but not getting much relief. She had increased coughing and more short of breath last night with increased symptomatic palpitations that felt like the pvcs she gets and she thus presented to the emergency department and was admitted for copd exacerbation. She feels a little better but is still coughing very hard with prolonged coughing fits that are nonproductive. - Review of Systems Constitutional: Fatigue, No Fever, No Chills Eyes: No Symptoms Ears, Nose, & Throat: No Symptoms Respiratory: Cough, Short Of Breath, Wheezing Cardiac: No Chest Pain, No Edema, No Syncope Abdominal/Gastrointestinal: Nausea, No Abdominal Pain, No Vomiting, No Diarrhea Genitourinary Symptoms: No Dysuria Musculoskeletal: Back Pain, No Neck Pain Skin: No Rash Neurological: No Dizziness, No Focal Weakness, No Sensory Changes Psychological: Anxiety, Depression, Mood Changes Endocrine: No Symptoms Hematologic/Lymphatic: No Symptoms Immunological/Allergic: No Symptoms Medications & Allergies Home Medications: Home Medication List Albuterol Sulfate Mdi [Proair Hfa MDI] 8.5 gm IH Q4-6HPRN PRN 06/06/13 [ History Confirmed 07/19/18] Fluticasone/Salmeterol [Advair 250-50 Diskus] 1 each IH BID 01/12/17 [History Confirmed 07/19/18] Lamotrigine 100 mg [lamICTAL 100MG TABLET] 200 mg PO DAILY 01/12/17 [ History Confirmed 07/19/18] Metoprolol Succinate [Toprol Xl] 25 mg PO BID 01/12/17 [History Confirmed ] Omeprazole 20 MG [Prilosec 20 mg] 20 mg PO DAILY 01/12/17 [History Confirmed ] Potassium Chloride 10 Meq Tab* [Klor Con 10 MEQ] 20 meq PO DAILY 01/12/17 [ History Confirmed 07/19/18] Promethazine HCl 25 mg [Phenergan 25 mg] 25 mg PO Q6HPRN PRN 01/12/17 [ History Confirmed 07/19/18] Ranitidine HCl [Zantac] 150 mg PO BID 01/12/17 [History Confirmed 07/19/18] Sumatriptan Succinate [Imitrex] 100 mg PO DAILY PRN PRN 01/12/17 [History Confirmed 07/19/18] Venlafaxine HCl ER 75 mg [Effexor XR 75 MG] 150 mg PO DAILY 01/12/17 [ History Confirmed 07/19/18] clonazePAM [Klonopin] 1 mg PO TID 01/12/17 [History Confirmed 07/19/18] hydroCHLOROthiazide [Hydrochlorothiazide] 12.5 mg PO DAILY 01/12/17 [History Confirmed 07/19/18] Meclizine HCl 25 mg [Antivert 25 mg] 25 mg PO Q8H PRN PRN #40 tablet 01/13 [Rx Confirmed 07/19/18] Albuterol Sulfate [Proair Hfa] 8.5 gm IH BID 07/19/18 [History Confirmed ] Asenapine Maleate [Saphris] 10 mg SL HS 07/19/18 [History Confirmed 07/19/18] Cefdinir 300 mg PO BID 07/19/18 [History Confirmed 07/19/18] Methylprednisolone Packet [Medrol Dosepack] 1 tab PO UD 07/19/18 [History Confirmed 07/19/18] Prazosin HCl 1 mg PO HS 07/19/18 [History Confirmed 07/19/18] Rosuvastatin Calcium [Crestor] 5 mg PO DAILY 07/19/18 [History Confirmed ] Tiotropium [place] Inhaler [Spiriva 18 Mcg/Cap Inhaler] 1 puff IH BID [History Confirmed 07/19/18] Allergies/Adverse Reactions: Allergies Allergy/AdvReac Type Severity Reaction Status Date / Time levofloxacin [From Levaquin] Allergy Mild Verified 07/19/18 14:03 Quinazolinones Allergy Mild Verified 07/19/18 14:03 Sulfa (Sulfonamide Allergy Mild Verified 07/19/18 14:03 Antibiotics) [Sulfa(Sulfonamide Antibiotics)] - Past Medical History Past Medical History: Yes Neurological History: Migraines ENT History: No Pertinent History Cardiac History: Arrhythmia, Hypertension, Other Respiratory History: Bronchitis, COPD, Pneumonia Endocrine Medical History: No Pertinent History Musculoskelatal History: Degenerative Disk Disease, Other GI Medical History: GERD History: No Pertinent History Pyscho-Social History: Bipolar, Depression Reproductive Disorders: Endometriosis Comment: PVC's - Female History Are you now?: No - Past Surgical History Past Surgical History: Yes Neuro Surgical History: No Pertinent History Cardiac History: No Pertinent History Respiratory Surgery: No Pertinent History GI Surgical History: Cholecystectomy Genitourinary Surgical Hx: No Pertinent History Female Surgical History: Section, Tubal Ligation, Other Other Surgical History: 1 endometrial ablasions, EGD, D&C - Social History Smoking Status: Current every day smoker How long have you smoked: 28 Exposure to second hand smoke: No Alcohol: Rarely Drug Use: marijuana Significant Family History: in age 40's - Physical Exam Vital Signs: Vital Signs - 24 hr Temp Pulse Pulse Resp BP Pulse Ox 07/20/18 07:25 97.5 F 65 18 114/67 97 07/20/18 04:00 97.6 F 69 19 116/67 94 L 07/20/18 00:00 97.8 F 71 19 118/60 95 07/19/18 20:00 98.4 F 74 17 114/64 95 07/19/18 17:59 95 07/19/18 17:23 98.7 F 78 18 137/80 95 07/19/18 16:50 98.7 F 78 18 137/80 95 18 16:41 97 07/19/18 16:06 84 18 120/84 95 07/19/18 14:33 80 18 95 07/19/18 14:24 79 20 97 07/19/18 14:01 97 07/19/18 13:55 98 F 82 82 18 155/108 97 General Appearance: no apparent distress, alert, obese Neurologic Exam: alert, oriented x 3, cooperative, normal mood/affect, nml cerebellar function, nml station & gait, sensation nml, No motor deficits Eye Exam: PERRL/EOMI, eyes nml inspection Ears, Nose, Throat Exam: normal ENT inspection, TMs normal, pharynx normal, moist mucous membranes Neck Exam: normal inspection, non-tender, supple, full range of motion Respiratory Exam: prolonged expirations, wheezing, No respiratory distress Cardiovascular Exam: regular rate/rhythm, normal heart sounds, normal peripheral pulses Gastrointestinal/Abdomen Exam: soft, normal bowel sounds, No tenderness, No mass Back Exam: normal inspection, normal range of motion, No CVA tenderness, No vertebral tenderness Extremity Exam: normal inspection, normal range of motion, pelvis stable Skin Exam: normal color, warm, dry, No rash Lymphatic Exam: No adenopathy Results - Labs Lab/Micro Results: Lab Results-Last 24 Hours 07/19/18 07/19/18 07/19/18 Range/Units 14:01 14:25 14:25 WBC 16.1 H (4.0-10.5) K/mm3 RBC 4.21 (4.1-5.4) M/mm3 Hgb 14.0 (12.0-16.0) gm/dl Hct 42.0 (35-47) % MCV 99.8 (78-100) fl MCH 33.3 H (26-32) pg MCHC 33.3 (32-36) g/dl RDW 15.1 H (11.5-14.0) % Plt Count 293 (150-450) K/mm3 MPV 9.7 H (6-9.5) fl Absolute Granulocytes (1.4-6.9) Segmented Neutrophils 70 H (36.0-66.0) % Band Neutrophils (0.0-2.0) % Lymphocytes (Manual) 26 (24-44) % Monocytes (Manual) 4 (0.0-12.0) % Platelet Estimate NORMAL (NORMAL) RBC Morphology ABNORMAL Polychromasia RARE Anisocytosis 1+ PT 11.6 (9.95-12.35) SECONDS INR 1.00 (0.8-3.0) APTT 24.2 L (25.3-37.0) SECONDS D-Dimer < 215 L (215-500) ng/mL pO2/FiO2 Ratio % VBG pH (7.32-7.42) VBG pCO2 at Pat Temp (42-55) mm/Hg VBG pO2 at Pat Temp (25-40) mm/Hg VBG HCO3 (22-28) meq/L VBG O2 Sat (Sy) (95-100) VBG Base Excess (-2.0-2.0) VBG Hemoglobin VBG Carboxyhemoglobin (0.0-6.9) % T HGB POC Potassium (3.5-5.1) Sodium 143 (137-145) mmol/L Potassium 3.4 L (3.5-5.1) mmol/L Chloride 103 (98-107) mmol/L Carbon Dioxide 28 (22-30) mmol/L Anion Gap 16.1 H (5-15) MEQ/L BUN 10 (7-17) mg/dL Creatinine 0.58 (0.52-1.04) mg/dL Estimated GFR > 60.0 ML/MIN Glucose 118 H (74-106) mg/dL Calcium 9.1 (8.4-10.2) mg/dL Total Bilirubin 0.40 (0.2-1.3) mg/dL AST 15 (14-36) U/L ALT 30 (0-35) U/L Alkaline Phosphatase 50 (38-126) U/L Troponin I (0.000-0.034) ng/mL Serum Total Protein 7.3 (6.3-8.2) g/dL Albumin 4.5 (3.5-5.0) g/dL 07/19/18 07/19/18 07/19/18 Range/Units 14:25 14:28 16:30 WBC (4.0-10.5) K/mm3 RBC (4.1-5.4) M/mm3 Hgb (12.0-16.0) gm/dl Hct (35-47) % MCV (78-100) fl MCH (26-32) pg MCHC (32-36) g/dl RDW (11.5-14.0) % Plt Count (150-450) K/mm3 MPV (6-9.5) fl Absolute Granulocytes (1.4-6.9) Segmented Neutrophils (36.0-66.0) % Band Neutrophils (0.0-2.0) % Lymphocytes (Manual) (24-44) % Monocytes (Manual) (0.0-12.0) % Platelet Estimate (NORMAL) RBC Morphology Polychromasia Anisocytosis PT (9.95-12.35) SECONDS INR (0.8-3.0) APTT (25.3-37.0) SECONDS D-Dimer (215-500) ng/mL pO2/FiO2 Ratio 21.0 21.0 % VBG pH 7.41 7.40 (7.32-7.42) VBG pCO2 at Pat Temp 45 46 (42-55) mm/Hg VBG pO2 at Pat Temp 53 H 52 H (25-40) mm/Hg VBG HCO3 28.5 H 28.5 H (22-28) meq/L VBG O2 Sat (Sy) 95.8 91.9 L (95-100) VBG Base Excess 3.2 H 3.0 H (-2.0-2.0) VBG Hemoglobin 14.5 14.0 VBG Carboxyhemoglobin 15.2 H* 7.4 H* (0.0-6.9) % T HGB POC Potassium 3.3 L 3.4 L (3.5-5.1) Sodium (137-145) mmol/L Potassium (3.5-5.1) mmol/L Chloride (98-107) mmol/L Carbon Dioxide (22-30) mmol/L Anion Gap (5-15) MEQ/L BUN (7-17) mg/dL Creatinine (0.52-1.04) mg/dL Estimated GFR ML/MIN Glucose (74-106) mg/dL Calcium (8.4-10.2) mg/dL Total Bilirubin (0.2-1.3) mg/dL AST (14-36) U/L ALT (0-35) U/L Alkaline Phosphatase (38-126) U/L Troponin I < 0.012 (0.000-0.034) ng/mL Serum Total Protein (6.3-8.2) g/dL Albumin (3.5-5.0) g/dL 07/19/18 07/19/18 07/19/18 Range/Units 17:18 20:27 23:21 WBC (4.0-10.5) K/mm3 RBC (4.1-5.4) M/mm3 Hgb (12.0-16.0) gm/dl Hct (35-47) % MCV (78-100) fl MCH (26-32) pg MCHC (32-36) g/dl RDW (11.5-14.0) % Plt Count (150-450) K/mm3 MPV (6-9.5) fl Absolute Granulocytes (1.4-6.9) Segmented Neutrophils (36.0-66.0) % Band Neutrophils (0.0-2.0) % Lymphocytes (Manual) (24-44) % Monocytes (Manual) (0.0-12.0) % Platelet Estimate (NORMAL) RBC Morphology Polychromasia Anisocytosis PT (9.95-12.35) SECONDS INR (0.8-3.0) APTT (25.3-37.0) SECONDS D-Dimer (215-500) ng/mL pO2/FiO2 Ratio % VBG pH (7.32-7.42) VBG pCO2 at Pat Temp (42-55) mm/Hg VBG pO2 at Pat Temp (25-40) mm/Hg VBG HCO3 (22-28) meq/L VBG O2 Sat (Sy) (95-100) VBG Base Excess (-2.0-2.0) VBG Hemoglobin VBG Carboxyhemoglobin (0.0-6.9) % T HGB POC Potassium (3.5-5.1) Sodium (137-145) mmol/L Potassium (3.5-5.1) mmol/L Chloride (98-107) mmol/L Carbon Dioxide (22-30) mmol/L Anion Gap (5-15) MEQ/L BUN (7-17) mg/dL Creatinine (0.52-1.04) mg/dL Estimated GFR ML/MIN Glucose (74-106) mg/dL Calcium (8.4-10.2) mg/dL Total Bilirubin (0.2-1.3) mg/dL AST (14-36) U/L ALT (0-35) U/L Alkaline Phosphatase (38-126) U/L Troponin I < 0.012 < 0.012 < 0.012 (0.000-0.034) ng/mL Serum Total Protein (6.3-8.2) g/dL Albumin (3.5-5.0) g/dL 07/20/18 07/20/18 07/20/18 Range/Units 02:35 02:35 02:35 WBC 14.7 H (4.0-10.5) K/mm3 RBC 4.07 L (4.1-5.4) M/mm3 Hgb 13.4 (12.0-16.0) gm/dl Hct 41.3 (35-47) % MCV 101.5 H (78-100) fl MCH 32.9 H (26-32) pg MCHC 32.4 (32-36) g/dl RDW 15.4 H (11.5-14.0) % Plt Count 264 (150-450) K/mm3 MPV 10.1 H (6-9.5) fl Absolute Granulocytes 12.81 H (1.4-6.9) Segmented Neutrophils 84 H (36.0-66.0) % Band Neutrophils 2 (0.0-2.0) % Lymphocytes (Manual) 14 L (24-44) % Monocytes (Manual) (0.0-12.0) % Platelet Estimate NORMAL (NORMAL) RBC Morphology NORMAL Polychromasia Anisocytosis PT (9.95-12.35) SECONDS INR (0.8-3.0) APTT (25.3-37.0) SECONDS D-Dimer (215-500) ng/mL pO2/FiO2 Ratio % VBG pH (7.32-7.42) VBG pCO2 at Pat Temp (42-55) mm/Hg VBG pO2 at Pat Temp (25-40) mm/Hg VBG HCO3 (22-28) meq/L VBG O2 Sat (Sy) (95-100) VBG Base Excess (-2.0-2.0) VBG Hemoglobin VBG Carboxyhemoglobin (0.0-6.9) % T HGB POC Potassium (3.5-5.1) Sodium 143 (137-145) mmol/L Potassium 4.2 D (3.5-5.1) mmol/L Chloride 109 H (98-107) mmol/L Carbon Dioxide 25 (22-30) mmol/L Anion Gap 13.0 (5-15) MEQ/L BUN 14 (7-17) mg/dL Creatinine 0.51 L (0.52-1.04) mg/dL Estimated GFR > 60.0 ML/MIN Glucose 140 H (74-106) mg/dL Calcium 8.8 (8.4-10.2) mg/dL Total Bilirubin 0.20 (0.2-1.3) mg/dL AST 12 L (14-36) U/L ALT 28 (0-35) U/L Alkaline Phosphatase 55 (38-126) U/L Troponin I < 0.012 (0.000-0.034) ng/mL Serum Total Protein 6.2 L (6.3-8.2) g/dL Albumin 3.8 (3.5-5.0) g/dL - Radiology Impressions Radiology Exams & Impressions: Radiology Procedures Category Date Time Status CHEST 1 VIEW (PORTABLE) Stat Exams 07/19/18 14:02 Completed - Other Procedures and Tests Respiratory Therapy 07/19/18 14:24 Peak Expiratory Flow Rate ONCE Respiratory Therapy Assessment DAILY 07/19/18 18:05 Respiratory MDI BID Assessment/Plan (1) Acute exacerbation of COPD with asthma Status: Acute Assessment & Plan: continue the steroids antibiotic and nebs stop smoking she is on room air currently and she is wanting to go home today will see how she does this am and consider discharge later today Code(s): J44.1 - CHRONIC OBSTRUCTIVE PULMONARY DISEASE W (ACUTE) EXACERBATION; J45.901 - UNSPECIFIED ASTHMA WITH (ACUTE) EXACERBATION (2) Anxiety Status: Acute Code(s): F41.9 - ANXIETY DISORDER, UNSPECIFIED (3) Hypertension Status: Chronic Code(s): I10 - ESSENTIAL (PRIMARY) HYPERTENSION (4) Bipolar disease, chronic Status: Chronic Code(s): F31.9 - BIPOLAR DISORDER, UNSPECIFIED
[2018-07-20 08:37] VITALS: PULSE 76; O2SAT 94
[2018-07-20] MEDS ORDERED: PHENERGAN 25 MG PO PRN (08:51)
[2018-07-20] MEDS ORDERED: Effexor XR 75 MG PO SCH (10:00)
[2018-07-20] MEDS ORDERED: lamICTAL 100MG TABLET PO SCH (10:00)
[2018-07-20] MEDS ORDERED: ROCEPHIN 1 Gm-D5w 50 ml Bag** 1 G/50 ML IVPB IV SCH (10:00)
[2018-07-20] MEDS ORDERED: Ventolin Hfa MDI IH SCH (10:00)
[2018-07-20] MEDS ORDERED: NON-FORMULARY ITEM (Hydrochlorothiazide [Hydrochlorothiazide] 12.5 MG) PO SCH (10:00)
[2018-07-20] MEDS ORDERED: NON-FORMULARY ITEM (Rosuvastatin Calcium [Crestor] 5 MG) PO SCH (10:00)
[2018-07-20] MEDS ORDERED: NON-FORMULARY ITEM (Omeprazole 20 Mg [Prilosec 20 Mg] 20 MG) PO SCH (10:00)
[2018-07-20] MEDS ORDERED: Zocor 10MG PO SCH (10:00)
[2018-07-20] MEDS ORDERED: Klor Con 10 MEQ PO SCH (10:00)
[2018-07-20] MEDS ORDERED: hydroDIURIL 25 MG PO SCH (10:00)
[2018-07-20] MEDS ORDERED: FLUZONE QUAD (36mo-64yo) 2018-2019 SYRINGE IM ONE (10:00)
[2018-07-20] MEDS ORDERED: Protonix 40MG Tablet PO SCH (10:00)
[2018-07-20] MEDS ORDERED: PATIENT OWN MEDICATION PO SCH (22:00)
[2018-07-20] MEDS ORDERED: PATIENT OWN MEDICATION SL SCH (22:00)
== END 2018-07-20 10:39 | disposition home or self-care (01) ==
LOC: ED 13:43 → MED SURG 17:08
PROVIDERS: ADMIT Family Medicine; ATTEND Family Medicine
DX: J44.1 Chronic obstructive pulmonary disease with (acute) exacerbation (principal); I10 Essential (primary) hypertension; F41.9 Anxiety disorder, unspecified; F31.9 Bipolar disorder, unspecified; Z79.899 Other long term (current) drug therapy; H66.90 Otitis media, unspecified, unspecified ear; F17.200 Nicotine dependence, unspecified, uncomplicated
CPT/HCPCS: 36000; 36415; 71045; 80053; 82805; 84484; 85025; 85379; 85610; 85730; 93005; 93041; 93268; 94150; 94640; 94762; 96360; 96365; 96374; 99285; G0378; J0696; J2930; J7609; A9270-GY

== ENCOUNTER 2020-07-06 19:33 | Emergency (ER) | payer MEDICARE ==
[2020-07-06] MEDS ORDERED: solu-MEDROL 125 MG IV ONE (20:16)
--- NOTE | 2020-07-06 20:17 | ERPHSYRPT ---
- History of Present Illness Time Seen by Provider: 07/06/20 20:05 Source: patient Exam Limitations: no limitations Patient Subjective Stated Complaint: . Triage Nursing Assessment: . Physician History: This is a 44-year-old white female smoker who has a history of COPD, bipolar disorder, anxiety issues who is COVID-19 test was negative on 06/04/2020 and presents with persistent cough, shortness of breath and wheezing. She has not had a fever. She denies abdominal pain. She does not have nausea vomiting or diarrhea. At this time she states she does not have any chest pain. In the last month she has been on steroids intermittently and just completed her last dose this morning. She also has completed a round of Z-Deven and doxycycline. Patient states that she is not improved. Timing/Duration: intermittent, worse, other (Symptoms for over a month) Possible Cause: illness exposure, smoke exposure Modifying Factors: Improves With: albuterol nebulizer, coughing Associated Symptoms: cough, shortness of breath, wheezing, No fever, No chest pain/soreness, No sore throat Allergies/Adverse Reactions: levofloxacin [From Levaquin] Allergy (Severe, Verified 07/06/20 19:54) Anaphylactic Reaction Quinazolinones Allergy (Severe, Verified 07/06/20 19:54) Anaphylactic Reaction Sulfa (Sulfonamide Antibiotics) [Sulfa(Sulfonamide Antibiotics)] Allergy (Mild, Verified 07/06/20 19:54) Hives Home Medications: Albuterol Sulfate Mdi [Proair Hfa MDI] 8.5 gm IH Q4-6HPRN PRN 06/06/13 [History] Lamotrigine 100 mg [lamICTAL 100MG TABLET] 200 mg PO DAILY 01/12/17 [History] Metoprolol Succinate [Toprol Xl] 25 mg PO BID 01/12/17 [History] Omeprazole 20 MG [Prilosec 20 mg] 20 mg PO DAILY 01/12/17 [History] Potassium Chloride 10 Meq Tab* [Klor Con 10 MEQ] 20 meq PO DAILY 01/12/17 [History] Sumatriptan Succinate [Imitrex] 100 mg PO DAILY PRN PRN 01/12/17 [History] Venlafaxine HCl ER 75 mg [Effexor XR 75 MG] 150 mg PO DAILY 01/12/17 [History] clonazePAM [Klonopin] 1 mg PO TID 01/12/17 [History] hydroCHLOROthiazide [Hydrochlorothiazide] 12.5 mg PO DAILY 01/12/17 [History] Albuterol Sulfate [Proair Hfa] 8.5 gm IH BID 07/19/18 [History] Prazosin HCl 1 mg PO HS 07/19/18 [History] Rosuvastatin Calcium [Crestor] 5 mg PO DAILY 07/19/18 [History] Aripiprazole Lauroxil [[place]] 3.9 ml IM UD 07/06/20 [History] Ibuprofen 800 mg PO TID 07/06/20 [History] Ipratropium/Albuterol Sulfate [Iprat-Albut 0.5-3(2.5) mg/3 ml] 3 ml IH Q4H PRN PRN 07/06/20 [History] Propranolol HCl 10 mg PO TID 07/06/20 [History] Umeclidinium [place] [Incruse Ellipta] 1 mcg IH DAILY 07/06/20 [History] Hx Tetanus, Diphtheria Vaccination/Date Given: Yes Hx Influenza Vaccination/Date Given: No Hx Pneumococcal Vaccination/Date Given: No Immunizations Up to Date: Yes Travel Risk - International Travel Have you traveled outside of the country in past 3 weeks: No - Coronavirus Screening Are you exhibiting any of the following symptoms?: Yes Symptoms: Cough: New Onset, Shortness of Breath, Headaches/Body Aches/Fatigue Close contact with a COVID-19 positive Pt in past 14-21 Days: No - Review of Systems Constitutional: No Symptoms Eyes: No Symptoms Ears, Nose, & Throat: No Symptoms Respiratory: Cough, Dyspnea, Wheezing Cardiac: No Symptoms Abdominal/Gastrointestinal: No Symptoms Genitourinary Symptoms: No Symptoms Musculoskeletal: No Symptoms Skin: No Symptoms Neurological: No Symptoms Psychological: No Symptoms Endocrine: No Symptoms Hematologic/Lymphatic: No Symptoms Immunological/Allergic: No Symptoms All Other Systems: Reviewed and Negative - Past Medical History Pertinent Past Medical History: Yes Neurological History: Migraines ENT History: No Pertinent History Cardiac History: Arrhythmia, Hypertension, Other Respiratory History: Bronchitis, COPD, Pneumonia Endocrine Medical History: No Pertinent History Musculoskeletal History: Degenerative Disk Disease, Other GI Medical History: GERD History: No Pertinent History Psycho-Social History: Bipolar, Depression Female Reproductive Disorders: Endometriosis Other Medical History: PVC's - Past Surgical History Past Surgical History: Yes Neuro Surgical History: No Pertinent History Cardiac: No Pertinent History Respiratory: No Pertinent History Gastrointestinal: Cholecystectomy Genitourinary: No Pertinent History Female Surgical History: Section, Tubal Ligation, Other Other Surgical History: 1 endometrial ablasions, EGD, D&C - Social History Smoking Status: Current every day smoker How long have you smoked: 31 years Exposure to second hand smoke: Yes Drug Use: marijuana Patient Lives Alone: No Significant Family History: in age 40's - Female History Hx Last Menstrual Period: Tubal Hx Now: No - Nursing Vital Signs Nursing Vital Signs: Initial Vital Signs Temperature 98.2 F 07/06/20 19:44 Pulse Rate 76 07/06/20 19:44 Respiratory Rate 24 07/06/20 19:44 Blood Pressure 168/89 07/06/20 19:44 O2 Sat by Pulse Oximetry 97 07/06/20 19:44 Pain Scale Pain Intensity 0 - Physical Exam General Appearance: no apparent distress, alert, anxiety Eye Exam: PERRL/EOMI, eyes nml inspection Ears, Nose, Throat Exam: normal ENT inspection, moist mucous membranes Neck Exam: normal inspection, non-tender, supple, full range of motion Respiratory Exam: airway intact, wheezing (Bilateral expiratory), No chest tenderness, No respiratory distress Cardiovascular Exam: regular rate/rhythm, normal heart sounds, normal peripheral pulses Gastrointestinal/Abdomen Exam: soft, normal bowel sounds, No tenderness Pelvic Exam: not done Rectal Exam: not done Back Exam: normal inspection, normal range of motion, No CVA tenderness, No vertebral tenderness Extremity Exam: normal inspection, normal range of motion, pelvis stable Neurologic Exam: alert, oriented x 3, cooperative, smeller II-XII nml as tested Skin Exam: normal color, warm, dry Lymphatic Exam: No adenopathy SpO2 Interpretation: normal SpO2: 97 O2 Delivery: Room Air - Course Nursing assessment & vital signs reviewed: Yes EKG Interpreted by Me: RATE (73), Sinus Rhythm, NORMAL AXIS, NORMAL INTERVALS, NORMAL QRS, Other Ordered Tests: Active Orders 24 hr Category Date Time Status Batch Operator STAT Care 07/06/20 20:18 Active EKG-ER Only STAT Care 07/06/20 20:16 Active IV Insertion STAT Care 07/06/20 20:16 Active Pulse Oximetry (ED) STAT Care 07/06/20 20:16 Active CHEST 1 VIEW (PORTABLE) Stat Exams 07/06/20 20:17 Taken BLOOD CULTURE Stat Lab 07/06/20 20:17 Ordered CBC W DIFF Stat Lab 07/06/20 20:15 Completed CMP Stat Lab 07/06/20 20:15 Completed D-DIMER QUANTITATIVE Stat Lab 07/06/20 20:15 Completed INFLUENZA A+B ERAN Stat Lab 07/06/20 20:15 Received Lactic Acid Stat Lab 07/06/20 20:16 Ordered Manual Differential NC Stat Lab 07/06/20 20:15 Completed [place] Screen Stat Lab 07/06/20 20:15 Received NT PRO BNP Stat Lab 07/06/20 20:15 Completed PROTIME WITH INR Stat Lab 07/06/20 20:15 Completed TROPONIN Q3H Lab 07/06/20 20:15 Completed TROPONIN Q3H Lab 07/06/20 23:30 Ordered TROPONIN Q3H Lab 07/07/20 02:30 Ordered TROPONIN Q3H Lab 07/07/20 05:30 Ordered TROPONIN Q3H Lab 07/07/20 08:30 Ordered Respiratory Therapy Assessment DAILY RT 07/06/20 20:54 Completed Medication Summary Generic Name Dose Route Start Last Admin Trade Name Freq PRN Reason Stop Dose Admin Albuterol Sulfate 4 puff 07/06/20 20:53 07/06/20 20:45 Ventolin Common Canister IH 08/05/20 20:52 4 puff Q4H PRN PRN Administration SHORTNESS OF BREATH/WHEEZING Discontinued Medications Generic Name Dose Route Start Last Admin Trade Name Freq PRN Reason Stop Dose Admin Methylprednisolone Sodium Succinate 125 mg 07/06/20 20:16 07/06/20 20:27 Solu-Medrol 125 Mg IV 07/06/20 20:17 125 mg STAT ONE Administration Methylprednisolone Sodium Succinate Confirm 07/06/20 20:25 Solu-Medrol 125 Mg Administered 07/06/20 20:26 Dose 125 mg .ROUTE .STK-MED ONE Lab/Rad Data: Laboratory Result Diagrams 07/06/20 20:15 07/06/20 20:15 Laboratory Results 07/06/20 07/06/20 07/06/20 Range/Units 20:15 20:15 20:15 WBC (4.0-10.5) K/mm3 RBC (4.1-5.4) M/mm3 Hgb (12.0-16.0) gm/dl Hct (35-47) % MCV (78-100) fl MCH (26-32) pg MCHC (32-36) g/dl RDW (11.5-14.0) % Plt Count (150-450) K/mm3 MPV (7.5-11.0) fl PT 12.0 (9.95-12.35) SECONDS INR 1.06 (0.8-3.0) D-Dimer 379 (215-500) ng/mL Sodium 139 (137-145) mmol/L Potassium 3.9 (3.5-5.1) mmol/L Chloride 101 (98-107) mmol/L Carbon Dioxide 33 H (22-30) mmol/L Anion Gap 8.7 (5-15) MEQ/L BUN 11 (7-17) mg/dL Creatinine 0.58 (0.52-1.04) mg/dL Estimated GFR > 60.0 ML/MIN Glucose 84 (74-106) mg/dL Calcium 9.5 (8.4-10.2) mg/dL Total Bilirubin 0.40 (0.2-1.3) mg/dL AST 13 L (14-36) U/L ALT 28 (0-35) U/L Alkaline Phosphatase 59 (38-126) U/L Troponin I < 0.012 (0.000-0.034) ng/mL NT-Pro-B Natriuret Pep 311 (0-450) pg/mL Serum Total Protein 7.0 (6.3-8.2) g/dL Albumin 4.2 (3.5-5.0) g/dL 07/06/20 Range/Units 20:15 WBC 17.3 H (4.0-10.5) K/mm3 RBC 4.33 (4.1-5.4) M/mm3 Hgb 14.1 (12.0-16.0) gm/dl Hct 44.3 (35-47) % MCV 102.3 H (78-100) fl MCH 32.6 H (26-32) pg MCHC 31.8 L (32-36) g/dl RDW 16.4 H (11.5-14.0) % Plt Count 228 (150-450) K/mm3 MPV 10.3 (7.5-11.0) fl PT (9.95-12.35) SECONDS INR (0.8-3.0) D-Dimer (215-500) ng/mL Sodium (137-145) mmol/L Potassium (3.5-5.1) mmol/L Chloride (98-107) mmol/L Carbon Dioxide (22-30) mmol/L Anion Gap (5-15) MEQ/L BUN (7-17) mg/dL Creatinine (0.52-1.04) mg/dL Estimated GFR ML/MIN Glucose (74-106) mg/dL Calcium (8.4-10.2) mg/dL Total Bilirubin (0.2-1.3) mg/dL AST (14-36) U/L ALT (0-35) U/L Alkaline Phosphatase (38-126) U/L Troponin I (0.000-0.034) ng/mL NT-Pro-B Natriuret Pep (0-450) pg/mL Serum Total Protein (6.3-8.2) g/dL Albumin (3.5-5.0) g/dL - Progress Progress: improved, re-examined Air Movement: good Progress Note: 07/06/20 21:17 Chest x-ray shows no definite acute cardiopulmonary process or infiltrate. There is no change in her x-ray of the chest when compared to that chest x-ray that was performed on 07/19/2018. Blood Culture(s) Obtained: Yes Antibiotics given: Yes Counseled pt/family regarding: lab results, diagnosis, need for follow-up, rad results - Departure Departure Disposition: Home Clinical Impression: Upper respiratory infection, Bronchitis Condition: Stable Critical Care Time: No Referrals: YVETTE FREIRE [Primary Care Provider] - Additional Instructions: Avoid exposure to any type of smoke. Stop smoking cigarettes. Use your nebulizer every 4 hours while awake for the next 3 to 4 days. Take your medication as prescribed. Follow-up with your primary care physician for persistent symptoms. Quarantine yourself until the coronavirus 19 test results have returned. Prescriptions: Hydrocodone/Acetaminophen [Hydrocodone-Acetamn 7.5-325/15] 10 ml PO Q8H PRN PRN #120 solution MDD 30ml PRN Reason: Cough Cefdinir 300 mg PO BID 7 Days #14 capsule Prednisone 10 mg [Deltasone 10 mg] 10 mg PO TID #12 tablet
[2020-07-06] MEDS ORDERED: solu-MEDROL 125 MG ONE (20:25)
[2020-07-06 20:42] LABS: Hematocrit 44.3 % (35-47); Hemoglobin 14.1 gm/dl (12.0-16.0); Mean Cell Volume 102.3 fl (78-100); Mean Corpuscular Hemoglobin 32.6 pg (26-32); Mean Corpuscular Hgb Concent. 31.8 g/dl (32-36); Mean Platelet Volume 10.3 fl (7.5-11.0); Platelet Count 228 K/mm3 (150-450); Red Blood Count 4.33 M/mm3 (4.1-5.4); Red Cell Distribution Width 16.4 % (11.5-14.0); White Blood Count 17.3 K/mm3 (4.0-10.5)
[2020-07-06 20:49] LABS: INR 1.06 (0.8-3.0)
[2020-07-06] MEDS ORDERED: VENTOLIN COMMON CANISTER IH PRN (20:53)
[2020-07-06 21:02] LABS: ALBUMIN 4.2 g/dL (3.5-5.0); ALKALINE PHOSPHATASE 59 U/L (38-126); ANION GAP 8.7 MEQ/L (5-15); BLOOD UREA NITROGEN 11 mg/dL (7-17); CHLORIDE 101 mmol/L (98-107); Calcium 9.5 mg/dL (8.4-10.2); Carbon Dioxide 33 mmol/L (22-30); Creatinine 1 0.58 mg/dL (0.52-1.04); EST GLOMERULAR FILTRATION RATE > 60.0 ML/MIN; Glucose 84 mg/dL (74-106); NT PRO BNP 311 pg/mL (0-450); Potassium 3.9 mmol/L (3.5-5.1); SGOT/AST 13 U/L (14-36); SGPT/ALT 28 U/L (0-35); SODIUM 139 mmol/L (137-145)
[2020-07-06] MEDS ORDERED: HYDROCODONE-ACETAMIN 2.5-108/5 ML SOLUTION PO STA (21:23)
[2020-07-06] MEDS ORDERED: ROCEPHIN 1 Gm-D5w 50 ml Bag** 1 G/50 ML IVPB IV STA (21:23)
[2020-07-06] MEDS ORDERED: HYDROCODONE-ACETAMIN 2.5-108/5 ML SOLUTION ONE (21:30)
[2020-07-06] MEDS ORDERED: ROCEPHIN 1 Gm-D5w 50 ml Bag** 1 G/50 ML IVPB IV ONE (21:31)
[2020-07-06 21:50] LABS: INFLUENZA A NEGATIVE (NEGATIVE); INFLUENZA B NEGATIVE (NEGATIVE)
[2020-07-06 22:31] VITALS: BP 159/97; PULSE 81; O2SAT 97
[2020-07-07 00:22] LABS: Basophil 1 % (0.0-1.0); Eosinophil 1 % (0.00-3.0); Lymphocytes 8 % (24-44); Monocyte 7 % (0.0-12.0); Neutrophils 83 % (36.0-66.0); Platelet Estimate NORMAL (NORMAL); Total Cells Counted 100; Toxic Granulation 1+
--- NOTE | 2020-07-07 08:50 | XRAY ---
Indication: Cough and wheezing. Comparison: January 23, 2019. Portable chest remains hyperinflated and clear. Heart and mediastinal structures within normal limits. Bony thorax intact. Impression: Nonacute hyperinflated chest.
== END 2020-07-06 22:44 | disposition home or self-care (01) ==
LOC: ED 19:33
DX: J06.9 Acute upper respiratory infection, unspecified (principal); J40 Bronchitis, not specified as acute or chronic
CPT/HCPCS: 36000; 36415; 71045; 80053; 83880; 84484; 85025; 85379; 85610; 86308; 87040; 87400; 87651; 93005; 93041; 94640; 94760; 96365; 96374; 99284; U0003; J0696; J2930; A9270-GY

== ENCOUNTER 2022-02-13 17:43 | Emergency (ER) | payer MEDICARE ==
[2022-02-13 18:02] VITALS: BP 141/83
--- NOTE | 2022-02-13 18:17 | ERPHSYRPT ---
- History of Present Illness Source: patient Exam Limitations: no limitations Patient Subjective Stated Complaint: Pt c/o of getting sunburned on Tuesday and having some peeled pickett on her chest and also omar feet swelling for the past 3 days Triage Nursing Assessment: Pt brought to the ER by her , hypertensive, rates pain as 4/10, scabbed areas by armpits, omar feet pitting edema, no edema in in the legs, red dots on feet that began when feet started swelling, second toe on the right foot is numb, pulses normal, doesn't appear to be in any distress Physician History: 46 yo wf w severe sunburn x 1 week. Pt states that the pruritis is unbearable and that she is unable to sleep. She got burned at the [facility]. Pt is worried about her feet which are edematous. Fever/nausea/vomiting/diarrhea/cough all denied. She was not wearing sunscreen. Timing/Duration: other (1wk) Quality: burning, itchy Severity: moderate Location: torso, feet, extremities Possible Causes: other (Sunburn) Associated Symptoms: blisters, change in skin texture, edema, No difficulty breathing, No fever, No flushing, No headache, No hives, No jaundice, No malaise, No nasal congestion, No numbness, No pallor, No paresthesia, No petechiae, No rash, No sore throat, No swelling/mass/lumps, No tingling Allergies/Adverse Reactions: levofloxacin [From Levaquin] Allergy (Severe, Verified 02/13/22 18:02) Anaphylactic Reaction Quinazolinones Allergy (Severe, Verified 02/13/22 18:02) Anaphylactic Reaction Sulfa (Sulfonamide Antibiotics) [Sulfa(Sulfonamide Antibiotics)] Allergy (Mild, Verified 02/13/22 18:02) Hives Home Medications: Lamotrigine 100 mg [lamICTAL 100MG TABLET] 150 mg PO BID 01/12/17 [History] Metoprolol Succinate [Toprol Xl] 25 mg PO BID 01/12/17 [History] Omeprazole 20 MG [Prilosec 20 mg] 40 mg PO DAILY 01/12/17 [History] Potassium Chloride Tab* [Klor Con] 20 meq PO DAILY 01/12/17 [History] SUMAtriptan succinate [Imitrex] 100 mg PO DAILY PRN PRN 01/12/17 [History] Venlafaxine HCl ER 75 mg [Effexor XR 75 MG] 150 mg PO DAILY 01/12/17 [History] clonazePAM [Klonopin] 1 mg PO TID 01/12/17 [History] hydroCHLOROthiazide [Hydrochlorothiazide] 12.5 mg PO DAILY 01/12/17 [History] Albuterol Sulfate [Proair Hfa] 8.5 gm IH BID 07/19/18 [History] Rosuvastatin Calcium [Crestor] 5 mg PO DAILY 07/19/18 [History] Aripiprazole Lauroxil [Aristada] 3.9 ml IM UD 07/06/20 [History] Ibuprofen 800 mg PO TID 07/06/20 [History] Ipratropium/Albuterol Sulfate [Iprat-Albut 0.5-3(2.5) mg/3 ml] 3 ml IH Q4H PRN PRN 07/06/20 [History] Propranolol HCl 10 mg PO TID 07/06/20 [History] Hx Tetanus, Diphtheria Vaccination/Date Given: Yes Hx Influenza Vaccination/Date Given: No Hx Pneumococcal Vaccination/Date Given: No Travel Risk - International Travel Have you traveled outside of the country in past 3 weeks: No - Coronavirus Screening Are you exhibiting any of the following symptoms?: No - Vaccine Status Have you recieved a Covid-19 vaccination: 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[employer]: [employer] - Vaccination Dates Date of 2cond Vaccination (if applicable): 07/30/21 - Review of Systems Constitutional: No Symptoms Eyes: No Symptoms Ears, Nose, & Throat: No Symptoms Respiratory: No Symptoms Cardiac: No Symptoms Abdominal/Gastrointestinal: No Symptoms Genitourinary Symptoms: No Symptoms Musculoskeletal: No Symptoms Neurological: No Symptoms Psychological: No Symptoms Endocrine: No Symptoms Hematologic/Lymphatic: No Symptoms Immunological/Allergic: No Symptoms - Past Medical History Pertinent Past Medical History: Yes Neurological History: Migraines ENT History: No Pertinent History Cardiac History: Arrhythmia, Hypertension, Other Respiratory History: Bronchitis, COPD, Pneumonia Endocrine Medical History: No Pertinent History Musculoskeletal History: Degenerative Disk Disease, Other GI Medical History: GERD History: No Pertinent History Psycho-Social History: Bipolar, Depression Female Reproductive Disorders: Endometriosis Other Medical History: PVC's - Past Surgical History Past Surgical History: Yes Neuro Surgical History: No Pertinent History Cardiac: No Pertinent History Respiratory: No Pertinent History Gastrointestinal: Cholecystectomy Genitourinary: No Pertinent History Female Surgical History: Section, Tubal Ligation, Other Other Surgical History: 1 endometrial ablasions, EGD, D&C - Social History Smoking Status: Current every day smoker How long have you smoked: 31 years Exposure to second hand smoke: Yes Drug Use: marijuana Patient Lives Alone: No Significant Family History: no pertinent family hx - Female History Hx Now: No (tubal) - Nursing Vital Signs Nursing Vital Signs: Initial Vital Signs Temperature 97.0 F 02/13/22 17:50 Pulse Rate 83 02/13/22 17:50 Blood Pressure 141/83 02/13/22 17:50 O2 Sat by Pulse Oximetry 93 L 02/13/22 17:50 Pain Scale Pain Intensity 4 Hypertensive/Borderline sats - Physical Exam General Appearance: no apparent distress Eye Exam: PERRL/EOMI, eyes nml inspection Ears, Nose, Throat Exam: normal ENT inspection, TMs normal, pharynx normal, moist mucous membranes Neck Exam: normal inspection, non-tender, supple, full range of motion, No meningismus, No mass, No Brudzinski, No Kernig's Respiratory Exam: normal breath sounds, lungs clear, airway intact, No respiratory distress Cardiovascular Exam: regular rate/rhythm, normal heart sounds, normal peripheral pulses, capillary refill <2 sec, No murmur Gastrointestinal/Abdomen Exam: soft, normal bowel sounds, No tenderness Back Exam: normal range of motion, No CVA tenderness, No vertebral tenderness Extremity Exam: normal range of motion Neurologic Exam: alert, oriented x 3, cooperative, mold unloader II-XII nml as tested, normal mood/affect, nml cerebellar function, nml station & gait, sensation nml, No motor deficits, No sensory deficit Skin Exam: other (Pt has solar pickett to her shoulders/superior chest/superior back w skin sloughing. No evidence of infection or abscess formation/She also has mild erythema of dorsal feet B w mild edema/Good pedal pulses, sensation, and capillary return) SpO2 Interpretation: borderline oxygenation SpO2: 93 O2 Delivery: Room Air - Course Nursing assessment & vital signs reviewed: Yes Ordered Tests: Active Orders 24 hr Category Date Time Status CBC W DIFF Stat Lab 02/13/22 18:29 Completed CMP Stat Lab 02/13/22 18:29 Completed Medication Summary Discontinued Medications Generic Name Dose Route Start Last Admin Trade Name Lita PRN Reason Stop Dose Admin Hydroxyzine HCl 25 mg 02/13/22 19:03 02/13/22 19:07 Hydroxyzine Hcl 25 Mg Tablet PO 02/13/22 19:04 25 mg STAT ONE Administration Hydroxyzine HCl Confirm 02/13/22 19:07 Hydroxyzine Hcl 25 Mg Tablet Administered 02/13/22 19:08 Dose 25 mg .ROUTE .STK-MED ONE Lab/Rad Data: Laboratory Result Diagrams 02/13/22 18:29 02/13/22 18:29 Laboratory Results 02/13/22 02/13/22 Range/Units 18:29 18:29 WBC 8.7 (4.0-10.5) x10^3/uL RBC 4.98 (4.1-5.4) x10^6/uL Hgb 15.7 (12.0-16.0) g/dL Hct 47.7 H (35-47) % MCV 95.8 (78-100) fL MCH 31.5 (26-32) pg MCHC 32.9 (32-36) g/dL RDW 17.2 H (11.5-14.0) % Plt Count 233 (150-450) x10^3/uL MPV 9.4 (7.5-11.0) fL Gran % 68.1 H (36.0-66.0) % Immature Gran % (Auto) 0.1 (0.00-0.4) % Nucleat RBC Rel Count 0.0 (0.00-0.1) % Eos # (Auto) 0.06 (0-0.5) x10^3/uL Immature Gran # (Auto) 0.01 (0.00-0.03) x10^3u/L Absolute Lymphs (auto) 2.13 (1.0-4.6) x10^3/uL Absolute Monos (auto) 0.56 (0.0-1.3) x10^3/uL Absolute Nucleated RBC 0.00 (0.00-0.01) x10^3u/L Lymphocytes % 24.5 (24.0-44.0) % Monocytes % 6.4 (0.0-12.0) % Eosinophils % 0.7 (0.00-5.0) % Basophils % 0.2 (0.0-0.4) % Absolute Granulocytes 5.93 (1.4-6.9) x10^3/uL Basophils # 0.02 (0-0.4) x10^3/uL Sodium 139 (137-145) mmol/L Potassium 3.7 (3.5-5.1) mmol/L Chloride 106 (98-107) mmol/L Carbon Dioxide 28 (22-30) mmol/L Anion Gap 9.1 (5-15) MEQ/L BUN 7 (7-17) mg/dL Creatinine 0.62 (0.52-1.04) mg/dL Estimated GFR > 60.0 ML/MIN Glucose 127 H (74-106) mg/dL Calcium 9.1 (8.4-10.2) mg/dL Total Bilirubin 0.40 (0.2-1.3) mg/dL AST 12 L (14-36) U/L ALT 16 (0-35) U/L Alkaline Phosphatase 66 (38-126) U/L Serum Total Protein 6.9 (6.3-8.2) g/dL Albumin 3.9 (3.5-5.0) g/dL - Progress Counseled pt/family regarding: diagnosis, need for follow-up - Departure Departure Disposition: Home Clinical Impression: Sunburn of second degree Condition: Stable Critical Care Time: No Referrals: YVETTE FREIRE NP [Primary Care Provider] - Follow up/PCP as directed Instructions: Sunburn (DC) Additional Instructions: Start Prednisone twice a day for 3 days Atarax as needed for itching Cool compresses Drink plenty of fluids Prescriptions: Hydroxyzine HCl 25 mg [Atarax 25 mg] 25 mg PO Q6H PRN PRN #20 tablet PRN Reason: Itching Prednisone 10 mg [Deltasone 10 mg] 10 mg PO BID 3 Days #6 tablet
[2022-02-13 18:31] LABS: Absolute Neutrophil Ct (ANC) 5.93 x10^3/uL (1.4-6.9); Basophil (Absolute #) 0.02 x10^3/uL (0-0.4); Eosinophil % 0.7 % (0.00-5.0); Eosinophil (Absolute #) 0.06 x10^3/uL (0-0.5); Hematocrit 47.7 % (35-47); Hemoglobin 15.7 g/dL (12.0-16.0); Lymphocyte (Absolute #) 2.13 x10^3/uL (1.0-4.6); Lymphocytes % 24.5 % (24.0-44.0); Mean Cell Volume 95.8 fL (78-100); Mean Corpuscular Hemoglobin 31.5 pg (26-32); Mean Corpuscular Hgb Concent. 32.9 g/dL (32-36); Mean Platelet Volume 9.4 fL (7.5-11.0); Monocyte (Absolute #) 0.56 x10^3/uL (0.0-1.3); Monocytes % 6.4 % (0.0-12.0); Neutrophil % 68.1 % (36.0-66.0); Platelet Count 233 x10^3/uL (150-450); Red Blood Count 4.98 x10^6/uL (4.1-5.4); Red Cell Distribution Width 17.2 % (11.5-14.0); White Blood Count 8.7 x10^3/uL (4.0-10.5)
[2022-02-13 18:42] LABS: ALBUMIN 3.9 g/dL (3.5-5.0); ALKALINE PHOSPHATASE 66 U/L (38-126); ANION GAP 9.1 MEQ/L (5-15); BLOOD UREA NITROGEN 7 mg/dL (7-17); CHLORIDE 106 mmol/L (98-107); Calcium 9.1 mg/dL (8.4-10.2); Carbon Dioxide 28 mmol/L (22-30); Creatinine 1 0.62 mg/dL (0.52-1.04); EST GLOMERULAR FILTRATION RATE > 60.0 ML/MIN; Glucose 127 mg/dL (74-106); Potassium 3.7 mmol/L (3.5-5.1); SGOT/AST 12 U/L (14-36); SGPT/ALT 16 U/L (0-35); SODIUM 139 mmol/L (137-145); Total Protein 6.9 g/dL (6.3-8.2)
[2022-02-13] MEDS ORDERED: ATARAX 25 MG PO ONE (19:03)
[2022-02-13] MEDS ORDERED: ATARAX 25 MG ONE (19:07)
[2022-02-13 19:08] VITALS: PULSE 77
[2022-02-13 21:12] VITALS: O2SAT 93
== END 2022-02-13 19:16 | disposition home or self-care (01) ==
LOC: ED 17:43
DX: L55.1 Sunburn of second degree (principal); L29.8 Other pruritus; R60.0 Localized edema; I10 Essential (primary) hypertension; J44.9 Chronic obstructive pulmonary disease, unspecified; Z72.0 Tobacco use; Z79.899 Other long term (current) drug therapy; Z79.52 Long term (current) use of systemic steroids
CPT/HCPCS: 36415; 80053; 85025; 99282; A9270-GY

== ENCOUNTER 2024-04-10 06:28 | Day surgery (SDC) | payer BC, MEDICARE ==
[2024-04-10] MEDS: Lactated Ringers 1,000 ML IV SCH (06:38)
[2024-04-10 06:46] VITALS: RESP 18
[2024-04-10 07:33] LABS: HCG SERUM TEST NEGATIVE (NEGATIVE)
[2024-04-10] MEDS ORDERED: Xylocaine-Mpf 2% 5 Ml Vial ONE (08:12)
[2024-04-10] MEDS ORDERED: DIPRIVAN 200 MG/20 ML IV ONE ×3 (08:12→08:38)
[2024-04-10] MEDS ORDERED: Versed 2 MG/2 ML Injection ONE (08:12)
[2024-04-10] MEDS ORDERED: Lactated Ringers 1,000 ML IV ONE (08:42)
[2024-04-10 09:23] VITALS: TEMP 97.2; O2SAT 95
[2024-04-10 09:25] VITALS: BP 152/85; PULSE 77
--- NOTE | 2024-04-11 09:54 | OP ---
SURGERY DATE/TIME: 04/10/2024 7519 - [id number] PREOPERATIVE DIAGNOSIS: Abdominal pain and black stools. POSTOPERATIVE DIAGNOSIS: Moderate gastritis. PROCEDURES: 1) Esophagogastroduodenoscopy with cold forceps biopsy at the gastric antrum. 2) Colonoscopy. SURGEON: Greg López MD ANESTHESIA: Medication given by the Anesthesia department. HISTORY: The patient is a 48-year-old white female who reports she has been having a long history of abdominal pain. She is noted to be taking Mobic and ibuprofen simultaneously. The patient reports she has been having these problems for at least the last 6 years. It was felt that she at this point needed to be looked at more closely. We discussed with her the risks of the procedure and the risk of perforation, phlebitis, untoward reaction to medication, bleeding and missed lesions. The patient verbalized her understanding and desired to have procedure performed. DESCRIPTION OF PROCEDURE AND FINDINGS: Patient was given medication by the Anesthesia department. She had continuous pulse oximetry, ECG monitoring, and intermittent blood pressure monitoring during the examination. She was placed in the left lateral decubitus position. A bite block was placed and flexible Olympus gastroscope was used to intubate the oropharynx. A view of the larynx was obtained and was normal. The scope was easily introduced in the esophagus which was normal throughout its length. The stomach was entered where normal gastric rugal folds were seen. These distended nicely with insufflation of air. There was noted to be a moderate amount of erythema throughout the stomach and no erosions or ulcerations. The pylorus was encountered and intubated. Duodenum was inspected and found to be normal. The scope was withdrawn towards the stomach. Retroflex view was obtained of the lesser curvature, fundus, and cardia regions of the stomach, and these appeared to be essentially normal. Biopsies were then obtained from the gastric antrum to rule out the presence of Helicobacter pylori-type organisms. The scope was removed from the patient. Next, a digital rectal examination was performed and revealed normal anal sphincter tone and no masses or external hemorrhoids were noted. Flexible Olympus pediatric colonoscope was used to intubate the rectum. A view of the colon was developed sequentially to the cecum including a short distance in the terminal ileum. It was noted that we had some difficulty passing through the sigmoid colon with a suggestion of lysis of adhesions from previous surgery. No other mucosal lesions encountered upon insertion and withdrawal, the scope was removed. The patient tolerated the procedure well and was sent back to outpatient recovery in good condition. The prep was noted to be fair to good.
== END 2024-04-10 09:30 | disposition home or self-care (01) ==
LOC: SDC 06:28
PROVIDERS: ATTEND Family Medicine
DX: K29.70 Gastritis, unspecified, without bleeding (principal); R19.5 Other fecal abnormalities; K21.9 Gastro-esophageal reflux disease without esophagitis
CPT/HCPCS: 36415; 84703; 93005; J2250; J2704

== ENCOUNTER 2024-09-20 12:40 | Emergency (ER) | payer BC, MEDICARE ==
[2012-08-03 00:26] VITALS: BP 139/70
== END 2024-09-20 13:15 | disposition left against medical advice (07) ==
LOC: ED 12:40
DX: Z53.21 Procedure and treatment not carried out due to patient leaving prior to being seen by health care provider (principal)

== ENCOUNTER 2024-09-21 12:58 | Emergency (ER) | payer BC, MEDICARE ==
[2024-09-21 13:22] VITALS: TEMP 98.4
--- NOTE | 2024-09-21 13:25 | ERPHSYRPT ---
- History of Present Illness Time Seen by Provider: 09/21/24 13:13 Source: patient Exam Limitations: no limitations Physician History: Pt states she has had fever up to 103 degrees for the past 6 days, coughing up green-yellow phlegm for the past 2 weeks and diarrhea for the past week without blood. Pt also c/o a headache, earaches and sore throat for the past 6 days. Pt also c/o sharp intermittent left and mid anterior chest pain since yesterday with episodes lasting up to 20 minutes. Allergies/Adverse Reactions: levofloxacin [From Levaquin] Allergy (Severe, Verified 03/28/24 09:51) Anaphylactic Reaction Quinazolinones Allergy (Severe, Verified 03/28/24 09:51) Anaphylactic Reaction Sulfa (Sulfonamide Antibiotics) [Sulfa(Sulfonamide Antibiotics)] Allergy (Mild, Verified 03/28/24 09:51) Hives Home Medications: Lamotrigine 100 mg [lamICTAL 100MG TABLET] 150 mg PO BID 01/12/17 [History] Metoprolol Succinate [Toprol Xl] 25 mg PO BID 01/12/17 [History] Potassium Chloride Tab* [Klor Con] 20 meq PO DAILY 01/12/17 [History] SUMAtriptan succinate [Imitrex] 100 mg PO DAILY PRN PRN 01/12/17 [History] Venlafaxine HCl ER 75 mg [Effexor XR 75 MG] 150 mg PO DAILY 01/12/17 [History] clonazePAM [Klonopin] 1 mg PO TID 01/12/17 [History] hydroCHLOROthiazide [Hydrochlorothiazide] 12.5 mg PO DAILY 01/12/17 [History] Albuterol Sulfate [Proair Hfa] 8.5 gm IH BID 07/19/18 [History] Rosuvastatin Calcium [Crestor] 5 mg PO DAILY 07/19/18 [History] Ipratropium/Albuterol Sulfate [Iprat-Albut 0.5-3(2.5) mg/3 ml] 3 ml IH Q4H PRN PRN 07/06/20 [History] Fenofibrate 40 mg PO DAILY 03/28/24 [History] Montelukast Sodium 10 mg [Singulair 10 MG] 10 mg PO DAILY 03/28/24 [History] Omeprazole Magnesium [Prilosec] 40 mg PO DAILY 03/28/24 [History] Hx Tetanus, Diphtheria Vaccination/Date Given: Yes Hx Influenza Vaccination/Date Given: No Hx Pneumococcal Vaccination/Date Given: No Travel Risk - Emerging Infectious Disease Are you exhibiting symptoms associated with any current EIDs: No - Review of Systems Constitutional: Fever Ears, Nose, & Throat: Ear Pain, Throat Pain Respiratory: Cough Cardiac: Chest Pain Abdominal/Gastrointestinal: Diarrhea, No Abdominal Pain, No Vomiting Neurological: Headache - Past Medical History Pertinent Past Medical History: Yes Neurological History: Migraines ENT History: No Pertinent History Cardiac History: Arrhythmia, High Cholesterol, Hypertension, Other Respiratory History: Bronchitis, COPD, Pneumonia, Sleep Apnea Endocrine Medical History: Other Musculoskeletal History: Degenerative Disk Disease, Other GI Medical History: GERD History: No Pertinent History Psycho-Social History: Anxiety, Bipolar, Depression Female Reproductive Disorders: Endometriosis Other Medical History: PVC's,cellulits rt lower leg, PTSD, pre diabetic. - Past Surgical History Past Surgical History: Yes Neuro Surgical History: No Pertinent History Cardiac: No Pertinent History Respiratory: No Pertinent History Gastrointestinal: Cholecystectomy Genitourinary: No Pertinent History Female Surgical History: Section, Tubal Ligation, Other Other Surgical History: 1 endometrial ablasions, EGD, D&C , laparoscopy for endometriosis Significant Family History: no pertinent family hx - Female History Hx Last Menstrual Period: ablasion - Social History Smoking Status: Former smoker - Nursing Vital Signs Nursing Vital Signs: Initial Vital Signs Temperature 98.4 F 09/21/24 13:15 Pulse Rate 87 09/21/24 13:15 Respiratory Rate 20 09/21/24 13:15 Blood Pressure 115/93 09/21/24 13:15 O2 Sat by Pulse Oximetry 94 L 09/21/24 13:15 Pain Scale Pain Intensity 3 - Physical Exam General Appearance: alert Eye Exam: PERRL/EOMI ENT Exam: hearing grossly normal, pharyngeal erythema (minimal) Neck Exam: normal inspection Respiratory Exam: wheezing (mild coarse diffuse wheezing) Cardiovascular/Chest Exam: normal heart sounds Gastrointestinal/Abdominal Exam: soft (B.S. normal) Extremity Exam: No pedal edema Neurologic Exam: alert, cooperative Skin Exam: warm, dry SpO2 Interpretation: normal SpO2: 94 O2 Delivery: Room Air - Course EKG Interpreted by Me: RATE (80), Sinus Rhythm, NORMAL AXIS, Other (QTc = 458) - Radiology Exams Chest X-ray Interpretation: Discussed w/ radiologist (No new or acute findings. See rest of report.) - CT Exams Chest CT Interpretation: Discussed w/radiologist (Patchy left lower lobe ground glass airspace disease. See rest of report.), No PE Ordered Tests: Active Orders 24 hr Category Date Time Status EKG-ER Only STAT Care 09/21/24 13:20 Active IV Insertion STAT Care 09/21/24 13:20 Active CHEST 2 VIEWS (PA AND LAT) Stat Exams 09/21/24 13:21 Completed CHEST WITH CONTRAST [CT] Stat Exams 09/21/24 14:25 Completed AMYLASE Stat Lab 09/21/24 13:30 Completed BLOOD CULTURE Stat Lab 09/21/24 13:50 Received CBC W DIFF Stat Lab 09/21/24 13:30 Completed CMP Stat Lab 09/21/24 13:30 Completed D-DIMER QUANTITATIVE Stat Lab 09/21/24 13:30 Completed LIPASE Stat Lab 09/21/24 13:30 Completed Lactic Acid Stat Lab 09/21/24 13:45 Completed MAGNESIUM Stat Lab 09/21/24 13:30 Completed TROPONIN Q4H Lab 09/21/24 13:30 Completed TROPONIN Q4H Lab 09/21/24 17:20 Received TROPONIN Q4H Lab 09/21/24 21:30 Ordered Medication Summary Discontinued Medications Generic Name Dose Route Start Last Admin Trade Name Freq PRN Reason Stop Dose Admin Albuterol Sulfate 2.5 mg 09/21/24 17:13 Albuterol Sulfate 2.5 Mg/3 Ml Neb IH 09/21/24 17:14 STAT ONE Albuterol Sulfate Confirm 09/21/24 17:26 Albuterol Sulfate 2.5 Mg/3 Ml Neb Administered 09/21/24 17:27 Dose 2.5 mg IH .STK-MED ONE Sodium Chloride 1,000 mls @ 999 mls/hr 09/21/24 13:20 09/21/24 16:17 Sodium Chloride 0.9% 1000 Ml IV 09/21/24 14:20 Infused .Q1H1M STA Infusion Ceftriaxone Sodium 1 gm in 100 mls @ 200 mls/hr 09/21/24 13:24 09/21/24 16:17 Rocephin 1 Gm / 100 Ml Nacl IV 09/21/24 13:53 Infused STAT ONE Infusion Azithromycin 500 mg in 250 mls @ 250 mls/hr 09/21/24 13:24 09/21/24 16:23 Zithromax 500 Mg/ 250 Ml Nacl Premix IV 09/21/24 14:23 250 ml/hr STAT STA 250 mls/hr Administration Sodium Chloride Confirm 09/21/24 13:35 Sodium Chloride 0.9% 1000 Ml Administered 09/21/24 13:36 Dose 1,000 mls @ ud .ROUTE .STK-MED ONE Ceftriaxone Sodium Confirm 09/21/24 13:35 Rocephin 1 Gm / 100 Ml Nacl Administered 09/21/24 13:36 Dose 1 gm in 100 mls @ ud IV .STK-MED ONE Azithromycin Confirm 09/21/24 16:16 Zithromax 500 Mg/ 250 Ml Nacl Premix Administered 09/21/24 16:17 Dose 500 mg in 250 mls @ ud IV .STK-MED ONE Ondansetron HCl 4 mg 09/21/24 16:36 09/21/24 16:40 Ondansetron Hcl 4 Mg/2 Ml Vial IV 09/21/24 16:37 4 mg STAT ONE Administration Ondansetron HCl Confirm 09/21/24 16:39 Ondansetron Hcl 4 Mg/2 Ml Vial Administered 09/21/24 16:40 Dose 4 mg .ROUTE .STK-MED ONE Lab/Rad Data: Laboratory Result Diagrams 09/21/24 13:30 09/21/24 13:30 Laboratory Results 09/21/24 09/21/24 09/21/24 Range/Units 13:45 13:35 13:35 WBC (3.98-10.04) x10^3/uL RBC (3.93-5.22) x10^6/uL Hgb (11.2-15.7) g/dL Hct (34.1-44.9) % MCV (79.4-94.8) fL MCH (25.6-32.2) pg MCHC (32.2-35.5) g/dL RDW (11.7-14.4) % Plt Count (182-369) x10^3/uL MPV (9.4-12.3) fL Gran % (34.0-71.1) % Immature Gran % (Auto) (0.001-0.429) % Nucleat RBC Rel Count (0.00-0.2) % Eos # (Auto) (0.04-0.36) x10^3/uL Immature Gran # (Auto) (0.001-0.031) x10^3u/L Absolute Lymphs (auto) (1.18-3.74) x10^3/uL Absolute Monos (auto) (0.24-0.86) x10^3/uL Absolute Nucleated RBC (0.00-0.012) x10^3u/L Lymphocytes % (19.3-51.7) % Monocytes % (4.7-12.5) % Eosinophils % (0.7-5.8) % Basophils % (0.1-1.2) % Absolute Granulocytes (1.56-6.13) x10^3/uL Basophils # (0.01-0.08) x10^3/uL D-Dimer (0.0-0.50) mg/L Sodium (135-145) mmol/L Potassium (3.5-5.1) mmol/L Chloride (98-107) mmol/L Carbon Dioxide (22-30) mmol/L Anion Gap (5-15) MEQ/L BUN (7-17) mg/dL Creatinine (0.52-1.04) mg/dL Estimated GFR ML/MIN Glucose (74-106) mg/dL Lactic Acid 1.5 (0.4-2.0) Calcium (8.4-10.2) mg/dL Magnesium (1.6-2.3) mg/dL Total Bilirubin (0.2-1.3) mg/dL AST (14-36) U/L ALT (0-35) U/L Alkaline Phosphatase (38-126) U/L Troponin I (0.000-0.033) ng/mL Serum Total Protein (6.3-8.2) g/dL Albumin (3.5-5.0) g/dL Amylase (30-110) U/L Lipase (23-300) U/L Influenza Type A Ag NEGATIVE (NEGATIVE) Influenza Type B Ag NEGATIVE (NEGATIVE) RSV (PCR) NEGATIVE (NEGATIVE) SARS-CoV-2 (PCR) NEGATIVE (NEGATIVE) Group A Strep Antibody NOT DETECTED (NEGATIVE) 09/21/24 09/21/24 09/21/24 Range/Units 13:30 13:30 13:30 WBC (3.98-10.04) x10^3/uL RBC (3.93-5.22) x10^6/uL Hgb (11.2-15.7) g/dL Hct (34.1-44.9) % MCV (79.4-94.8) fL MCH (25.6-32.2) pg MCHC (32.2-35.5) g/dL RDW (11.7-14.4) % Plt Count (182-369) x10^3/uL MPV (9.4-12.3) fL Gran % (34.0-71.1) % Immature Gran % (Auto) (0.001-0.429) % Nucleat RBC Rel Count (0.00-0.2) % Eos # (Auto) (0.04-0.36) x10^3/uL Immature Gran # (Auto) (0.001-0.031) x10^3u/L Absolute Lymphs (auto) (1.18-3.74) x10^3/uL Absolute Monos (auto) (0.24-0.86) x10^3/uL Absolute Nucleated RBC (0.00-0.012) x10^3u/L Lymphocytes % (19.3-51.7) % Monocytes % (4.7-12.5) % Eosinophils % (0.7-5.8) % Basophils % (0.1-1.2) % Absolute Granulocytes (1.56-6.13) x10^3/uL Basophils # (0.01-0.08) x10^3/uL D-Dimer 0.54 H (0.0-0.50) mg/L Sodium 141 (135-145) mmol/L Potassium 3.4 L (3.5-5.1) mmol/L Chloride 100 (98-107) mmol/L Carbon Dioxide 21 L (22-30) mmol/L Anion Gap 23.0 H (5-15) MEQ/L BUN 16 (7-17) mg/dL Creatinine 0.80 (0.52-1.04) mg/dL Estimated GFR 91.4 ML/MIN Glucose 142 H (74-106) mg/dL Lactic Acid (0.4-2.0) Calcium 9.7 (8.4-10.2) mg/dL Magnesium 2.0 (1.6-2.3) mg/dL Total Bilirubin 1.00 (0.2-1.3) mg/dL AST 21 (14-36) U/L ALT 31 (0-35) U/L Alkaline Phosphatase 89 (38-126) U/L Troponin I < 0.012 (0.000-0.033) ng/mL Serum Total Protein 8.1 (6.3-8.2) g/dL Albumin 5.1 H (3.5-5.0) g/dL Amylase 67 (30-110) U/L Lipase 94 (23-300) U/L Influenza Type A Ag (NEGATIVE) Influenza Type B Ag (NEGATIVE) RSV (PCR) (NEGATIVE) SARS-CoV-2 (PCR) (NEGATIVE) Group A Strep Antibody (NEGATIVE) 09/21/24 Range/Units 13:30 WBC 10.8 H (3.98-10.04) x10^3/uL RBC 4.92 (3.93-5.22) x10^6/uL Hgb 15.4 (11.2-15.7) g/dL Hct 44.7 (34.1-44.9) % MCV 90.9 (79.4-94.8) fL MCH 31.3 (25.6-32.2) pg MCHC 34.5 (32.2-35.5) g/dL RDW 14.2 (11.7-14.4) % Plt Count 244 (182-369) x10^3/uL MPV 10.0 (9.4-12.3) fL Gran % 82.4 H (34.0-71.1) % Immature Gran % (Auto) 0.6 H (0.001-0.429) % Nucleat RBC Rel Count 0.0 (0.00-0.2) % Eos # (Auto) 0.02 L (0.04-0.36) x10^3/uL Immature Gran # (Auto) 0.06 H (0.001-0.031) x10^3u/L Absolute Lymphs (auto) 1.16 L (1.18-3.74) x10^3/uL Absolute Monos (auto) 0.64 (0.24-0.86) x10^3/uL Absolute Nucleated RBC 0.00 (0.00-0.012) x10^3u/L Lymphocytes % 10.7 L (19.3-51.7) % Monocytes % 5.9 (4.7-12.5) % Eosinophils % 0.2 L (0.7-5.8) % Basophils % 0.2 (0.1-1.2) % Absolute Granulocytes 8.93 H (1.56-6.13) x10^3/uL Basophils # 0.02 (0.01-0.08) x10^3/uL D-Dimer (0.0-0.50) mg/L Sodium (135-145) mmol/L Potassium (3.5-5.1) mmol/L Chloride (98-107) mmol/L Carbon Dioxide (22-30) mmol/L Anion Gap (5-15) MEQ/L BUN (7-17) mg/dL Creatinine (0.52-1.04) mg/dL Estimated GFR ML/MIN Glucose (74-106) mg/dL Lactic Acid (0.4-2.0) Calcium (8.4-10.2) mg/dL Magnesium (1.6-2.3) mg/dL Total Bilirubin (0.2-1.3) mg/dL AST (14-36) U/L ALT (0-35) U/L Alkaline Phosphatase (38-126) U/L Troponin I (0.000-0.033) ng/mL Serum Total Protein (6.3-8.2) g/dL Albumin (3.5-5.0) g/dL Amylase (30-110) U/L Lipase (23-300) U/L Influenza Type A Ag (NEGATIVE) Influenza Type B Ag (NEGATIVE) RSV (PCR) (NEGATIVE) SARS-CoV-2 (PCR) (NEGATIVE) Group A Strep Antibody (NEGATIVE) - Progress Progress: improved Counseled pt/family regarding: lab results, diagnosis, need for follow-up, rad results Medical Desision Making - Diagnostic Testing Diagnostic test were ordered, analyzed, and reviewed by me: Yes Radiological Interpretation: Discussed w/ radiologist - Departure Departure Disposition: Home Clinical Impression: LLL pneumonia, Chest pain Condition: Stable Critical Care Time: No Referrals: YVETTE FREIRE NP [Primary Care Provider] - Follow up/PCP as directed Instructions: Pneumonia, Adult (DC) Additional Instructions: Follow up with private doctor tomorrow. Take albuterol nebulizer treatments every 4 hours as needed for wheezing. Forms: Work/School Release Form Prescriptions: Cefpodoxime Proxetil 200 mg [Vantin 200 mg] 200 mg PO BID #20 tablet Azithromycin 250 mg [Zithromax 250 MG TABLET] 250 mg PO ZPACK #6 tablet
[2024-09-21] MEDS ORDERED: Sodium Chloride 0.9% 1000 ML 1,000 ML ONE (13:35)
[2024-09-21] MEDS ORDERED: ROCEPHIN 1 GM / 100 ML NaCl 1 GM/100 ML IVPB IV ONE (13:35)
[2024-09-21] MEDS: Sodium Chloride 0.9% 1000 ML 1,000 ML IV STA (13:47)
[2024-09-21 13:48] LABS: Absolute Neutrophil Ct (ANC) 8.93 x10^3/uL (1.56-6.13); BASOPHIL % 0.2 % (0.1-1.2); Basophil (Absolute #) 0.02 x10^3/uL (0.01-0.08); Eosinophil % 0.2 % (0.7-5.8); Eosinophil (Absolute #) 0.02 x10^3/uL (0.04-0.36); Hematocrit 44.7 % (34.1-44.9); Hemoglobin 15.4 g/dL (11.2-15.7); IMMATURE GRAN # 0.06 x10^3u/L (0.001-0.031); IMMATURE GRAN % 0.6 % (0.001-0.429); Lymphocyte (Absolute #) 1.16 x10^3/uL (1.18-3.74); Lymphocytes % 10.7 % (19.3-51.7); Mean Cell Volume 90.9 fL (79.4-94.8); Mean Corpuscular Hemoglobin 31.3 pg (25.6-32.2); Mean Corpuscular Hgb Concent. 34.5 g/dL (32.2-35.5); Monocyte (Absolute #) 0.64 x10^3/uL (0.24-0.86); Monocytes % 5.9 % (4.7-12.5); Neutrophil % 82.4 % (34.0-71.1); Platelet Count 244 x10^3/uL (182-369); Red Blood Count 4.92 x10^6/uL (3.93-5.22); Red Cell Distribution Width 14.2 % (11.7-14.4); White Blood Count 10.8 x10^3/uL (3.98-10.04)
--- NOTE | 2024-09-21 13:54 | XRAY ---
Indication: Cough. Comparison: July 19, 2022 PA/lateral chest again hyperinflated and clear. Heart and mediastinal structures within normal limits. Bony thorax intact with minimal dextroscoliosis. No new/acute findings.
[2024-09-21 14:00] LABS: ALBUMIN 5.1 g/dL (3.5-5.0); Calcium 9.7 mg/dL (8.4-10.2); Creatinine 1 0.8 mg/dL (0.52-1.04); EST GLOMERULAR FILTRATION RATE 91.4 ML/MIN; Potassium 3.4 mmol/L (3.5-5.1); Total Protein 8.1 g/dL (6.3-8.2)
[2024-09-21] MEDS: ROCEPHIN 1 GM / 100 ML NaCl 1 GM/100 ML IVPB IV ONE (14:03)
[2024-09-21 14:20] LABS: INFLUENZA A NEGATIVE (NEGATIVE); INFLUENZA B NEGATIVE (NEGATIVE); RESPIRATORY SYNCTIAL VIRUS NEGATIVE (NEGATIVE); SARS-CoV-2 Xpert Express NEGATIVE (NEGATIVE)
--- NOTE | 2024-09-21 16:04 | XRAY ---
Indication: Elevated d-dimer. Multiple contiguous axial images obtained through the chest using 80 cc Isovue 370 contrast and PE protocol. Comparison: None Good opacification pulmonary arteries to include lobar and segmental branches. No pulmonary embolus. Heart not enlarged. Aorta is normal in course and caliber. No pathologic mediastinal/hilar lymphadenopathy. Lungs demonstrates patchy anterior medial left lower lobe groundglass airspace disease. No consolidation/surgery effusion. Incidental mild pulmonary emphysema and anterior right upper lobe subsegmental atelectasis/scarring. Bony thorax intact with minimal degenerative changes throughout spine. Limited upper abdomen demonstrates fatty liver. There are also multiple small hepatic hypodense lesions largest 1.8 x 0.9 cm. Impression: 1. Negative pulmonary embolus. 2. Patchy left lower lobe ground glass airspace disease. 3. Multiple small indeterminant hypodense lesions. Sonogram may help differentiate solid versus cystic. 4. Chronic findings including pulmonary emphysema, atelectasis/scarring, fatty liver, and degenerative spondylosis.
[2024-09-21] MEDS ORDERED: Zithromax 500 MG/ 250 ML NaCl Premix 500 MG/250 ML IVPB IV ONE (16:16)
[2024-09-21] MEDS: Zithromax 500 MG/ 250 ML NaCl Premix 500 MG/250 ML IVPB IV STA (16:23)
[2024-09-21] MEDS ORDERED: Zofran 4 MG/2 ML VIAL ONE (16:39)
[2024-09-21] MEDS: Zofran 4 MG/2 ML VIAL IV ONE (16:40)
[2024-09-21] MEDS ORDERED: PROVENTIL 2.5 MG/3 ML NEB IH ONE (17:26)
[2024-09-21] MEDS: PROVENTIL 2.5 MG/3 ML NEB IH ONE (17:29)
[2024-09-21 17:55] VITALS: BP 170/60; PULSE 70; RESP 18; O2SAT 97
== END 2024-09-21 17:57 | disposition home or self-care (01) ==
LOC: ED 12:58
DX: J18.9 Pneumonia, unspecified organism (principal); R07.9 Chest pain, unspecified; R50.9 Fever, unspecified; R05.1 Acute cough; R19.7 Diarrhea, unspecified; R51.9 Headache, unspecified; E78.5 Hyperlipidemia, unspecified; I10 Essential (primary) hypertension; Z79.899 Other long term (current) drug therapy
CPT/HCPCS: 0241U; 36415; 71046; 71260; 80053; 82150; 83605; 83690; 83735; 84484; 85025; 85379; 87040; 87651; 93005; 94640; 96365; 96366; 96367; 96375; 99285; 96374; J0456; J0696; J2405; J7609; A9270-GY